=== PATIENT | female | born 1940 | race Caucasian/White ===

== ENCOUNTER → 2017-07-13 08:14 | Outpatient (CLI) | payer MEDICARE, SELFPAY ==
--- NOTE | 2017-07-13 08:18 | BI_ITS ---
MAMMOGRAPHY - BILATERAL SCREENING REASON FOR EXAM: Female, 77 years old. Routine annual screening examination. PERTINENT HISTORY: Sisters with breast cancer. TECHNIQUE: Digital bilateral breast saniya (3D mammographic acquisition) in the CC and MLO projections. 2-D mediolateral oblique (MLO) and craniocaudad (CC) views of both breasts were obtained. CAD: Full Field Digital Mammography with Computer Added Detection was performed. COMPARISON: Comparison is made with prior study dated July 12, 2016 and June 19, 2015. FINDINGS: Breast Composition: The breasts are heterogeneously dense, which may obscure small masses. There are no dominant masses or suspicious calcifications. Stable calcified nodular density in the deep mid inner portion of the left breast in keeping with calcified fibroadenoma. No other significant abnormalities are identified. There has been no significant change since the prior study. BI/SCREENING MAMM (CAD), BILAT IMPRESSION: Stable bilateral screening mammogram. Yearly follow-up mammogram recommended. (A) ASSESSMENT CATEGORY: BIRADS Category 2: Benign. A letter regarding these results will be sent to the patient by the facility within 30 days. Approximately 10% of breast cancers are not detected by mammography. A normal mammogram should not delay biopsy of a clinically suspicious abnormality. [id number] Electronically Signed: Tone Mary MD at 10:08 EDT Tel [phone], Service support ,
--- NOTE | 2017-07-13 08:20 | BD_ITS ---
STUDY: DUAL ENERGY X-RAY ABSORPTIOMETRY / DXA REASON FOR EXAM: Female, 77 years old. The patient is postmenopausal. Loss of height of 1.5 inches. TECHNIQUE: Bone Mineral Density (BMD) measurements of lumbar spine and bilateral hips were obtained. COMPARISON: Comparison is made with prior study dated June 08, 2011. FINDINGS: Lumbar Spine (L1-L4): g/cm2 (1.012) / T-score (-1.4) / Z-score (0.4) Findings are suggestive of osteopenia with a moderate fracture risk. Left Femur Total: g/cm2 (0.891) / T-score (-0.9) / Z-score (1.0) Left Femoral Neck: g/cm2 (0.769) / T-score (-1.9) / Z-score (0.1) Right Femur Total: g/cm2 (0.809) / T-score (-1.6) / Z-score (0.3) Right Femoral Neck: g/cm2 (0.715) / T-score (-2.3) / Z-score (-0.3) The T-Scores on the most recent prior examination were: Lumbar Spine (L1-L4): There has been improvement of bone density since the previous examination. Left Femur Total: which represents a worsening of 9.9%. Right Femur Total: which represents a worsening of 11.4%. BD/Dexa Bone Density Study IMPRESSION: The patient is considered osteopenic as outlined below according to World [place] Organization (WHO) criteria with a moderate fracture risk. There has been worsening of bone density since the previous examination. Reference Information: The T-score is the number of standard deviations above or below the standard which is normal for young adults at their peak bone mineral density. The World Health Organization (WHO) interprets the T-scores as follows: Above -1 Normal bone density Between -1 and -2.5 Osteopenia Equal to / or below -2.5 Osteoporosis As a practical clinical guideline, osteopenia may be graded as follows: Mild -1 through -1.5 Moderate -1.6 through -2.0 Severe -2.1 through -2.4 The Z-score is the number of standard deviations above or below age-matched controls. A Z-score of less than -1.5 would be considered abnormal. References: 1. NIH Osteoporosis and Related Bone Diseases http://www.osteo.org 2. International Society for Clinical Densitometry http://www.iscd.org 3. National Osteoporosis Foundation http://www.nof.org Electronically Signed: Tone Mary MD at 11:20 EDT Tel [phone], Service support ,
== END ==
PROVIDERS: Family Provider Internal Medicine; PCP Internal Medicine; Visit Provider Internal Medicine
DX: Z12.31 Encounter for screening mammogram for malignant neoplasm of breast (principal); Z78.0 Asymptomatic menopausal state
CPT/HCPCS: 77063; 77067; 77080

== ENCOUNTER → 2018-01-31 06:03 | Outpatient (CLI) | payer MEDICARE, SELFPAY ==
[2018-01-31 06:11] LABS: Bacteria 0 SEEN /hpf (None Seen); Mucous, Urine 0 SEEN /hpf (<or=2+); Red Blood Cells-Urine 0 SEEN /hpf (0-5)
[2018-01-31 06:55] LABS: Absolute Lymphocyte Count 1.52 X10^3/ul (0.83-4.51); Absolute Neutrophil Count 2.8 X10^3/uL (2.0-7.7); Basophil# 0.06 X10^3/uL; Basophil% 1.2 % (0-1); Eosinophil# 0.23 X10^3/uL; Eosinophils% 4.7 % (0-5); Hematocrit 37.2 % (37-47); Hemoglobin 12.3 g/dl (12.0-15.0); Lymphocyte # 1.52 X10^3/ul (4.0); Mean Corp Hgb Conc 33.1 g/gl (32-36); Mean Corpuscular Hgb 30.1 pg (27.0-32.0); Mean Platelet Vol. 10.3 fl (6.2-12.0); Monocyte# 0.29 X10^3/uL; Monocyte% 5.9 % (0-10); Neutrophil % 57.2 % (47-70); Platelet Count 242 K/mm3 (150-450); RBC Distribution Width CV 13.2 % (11.6-14.6); RBC Distribution Width SD 43.8 fl (35.1-43.9); Red Blood Count 4.09 M/mm3 (4.2-5.4); White Blood Count 4.9 K/mm3 (4.4-11.0)
[2018-01-31 06:58] LABS: Color, Urine Yellow (Yellow); Glucose, Dipstick Normal (Normal); Ketone-Dipstick Negative (Negative); Leukocyte Esterase-Dipstick 500 /ul (Negative); Nitrite-Dipstick Negative (Negative); Occult Blood-Urine Negative /ul (Negative); Protein-Dipstick Negative (Negative); Urine Bilirubin Dipstick Negative (Negative); Urine Clarity Clear (Clear); Urine Urobilinogen Normal (Normal)
[2018-01-31 07:02] LABS: POSITIVE COUNT NO; POSITIVE DIFFERENTIAL NO; POSITIVE MORPHOLOGY NO
[2018-01-31 07:12] LABS: Squamous Epithelial Cells - UA 0-5 SEEN /hpf (5-10); White Blood Cells 5-10 SEEN /hpf (0-5)
[2018-01-31 07:15] LABS: Microalbumin,Random Urine 15.5 mg/L (NO RANGE EST.); Microalbumin:Creatinine Ratio 8.2 mg/g CRE (<30 mg/g CRE)
[2018-01-31 07:33] LABS: ALB/GLOB Ratio 1.1 RATIO (0.9-2.4); AST(SGOT) 20 U/L (15-37); Alanine Aminotransfer ALT/SGPT 23 U/L (13-56); Albumin, Serum 3.7 g/dL (3.2-5.0); Alkaline Phosphatase 79 U/L (45-117); Anion Gap 7 (5-15); BUN 18 mg/dL (7-18); BUN/Creat Ratio 14.6 RATIO (10-20); Calcium,Total 8.6 mg/dL (8.5-10.1); Chloride 108 mmol/L (98-107); Cholesterol 191 mg/dL (200); Creatinine, Serum 1.23 mg/dL (0.55-1.02); EST Glomerular Filtration Rate 45 mL/min (>60); Est Glom Filt Rate - Afr Amer 54 mL/min (>60); Globulin 3.5 g/dL (2.2-4.2); Glucose 92 mg/dL (74-106); High Density Lipoprotein 58 mg/dL; Potassium 4.2 mmol/L (3.5-5.1); Protein, Total 7.2 g/dL (6.4-8.2); Sodium Level 141 mmol/L (136-145); Thyroid Stim Hormone (TSH) 2.54 uIU/mL (0.358-3.74); Triglycerides 92 mg/dL; Very Low Density Lipoprotein 18 mg/dL (5-40)
[2018-01-31 08:41] LABS: Vitamin D,25 Hydroxy 52.3 ng/mL (29.95-100.01)
== END ==
PROVIDERS: Family Provider Internal Medicine; PCP Internal Medicine; Referring Provider Internal Medicine; Visit Provider Internal Medicine
DX: E55.9 Vitamin D deficiency, unspecified (principal); I11.9 Hypertensive heart disease without heart failure; R73.02 Impaired glucose tolerance (oral)
CPT/HCPCS: 36415; 80053; 80061; 81001; 82043; 82306; 82570; 84443; 85025

== ENCOUNTER → 2018-04-19 11:10 | Outpatient (CLI) | payer MEDICARE, SELFPAY ==
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
== END ==
PROVIDERS: Family Provider Internal Medicine; PCP Internal Medicine; Referring Provider Internal Medicine; Visit Provider Internal Medicine
DX: M25.562 Pain in left knee (principal)
CPT/HCPCS: 73560

== ENCOUNTER 2018-05-19 07:30 | Outpatient (RCR) | payer MEDICARE, SELFPAY ==
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
--- NOTE | 2018-05-19 08:05 | HP.PTDCSUM ---
HP - PT D/C Summary It has been my pleasure to treat ANDREEA CORDOVA under orders from Nayely Caldwell, for the diagnosis of Left knee Pain for a total of 8 visit(s). Discharge Date: Please see the following information for a summary of their discharge status. - Subjective Subjective: Sometimes she thinks she is alright but the medial side feels swollen and painful. Its slowing her down- better than she was but not 100%. Thinks there is more than OA going on in there. Goes back to the MD the - Pain at night and twisting. - Overall Improvement % Improvement: 80 - Objective Objective/Function: Posture: FH, RS, Increased. Gait: no deviation. Stairs: asc/desc 8 stairs recip with 1 HR HR/TR: able with UE A. SLS: 10 sec without LOB. Palpation: tender along medial joint line. ROM: 0-120 degrees. Strength: Ankle: 5/5, Knee: 4+/5, Hip: 4+/5 throughout Core: fair minus. Flex: HS: moderate, Gastroc: moderate. Special Test: Gena: positive - Goals Goal 1:: Patient will be I with HEP and progression Goal 2:: Patient will ambulate >300 feet with a normalized gait pattern Goal 3:: Patient will asc/desc 8 stairs recip with 1 HR Goal 4:: Patient will report 0/10 pain for 1 week Goal 5:: Patient will demo 4+/5 strenght in LE where deficit - Plan Plan: Discharge to I HEP - D/C Information If there are questions or concerns regarding this patient's physical therapy, please feel free to call me at [phone]. Thank you for the referral of this patient. Sincerely, Inge Anderson DPT
== END 2018-05-19 10:10 | disposition home or self-care (01) ==
LOC: PT 07:30
PROVIDERS: Family Provider Internal Medicine; PCP Internal Medicine; Referring Provider Physician Assistant; Visit Provider Physician Assistant
DX: M17.12 Unilateral primary osteoarthritis, left knee (principal)
CPT/HCPCS: 97035; 97110; 97161; 97164

== ENCOUNTER 2018-06-09 07:30 | Outpatient (RCR) | payer MEDICARE, SELFPAY ==
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
--- NOTE | 2018-08-09 12:18 | HP.PT.NRP ---
HP - Discharge Summary (1) - Patient Information ANDREEA CORDOVA was seen in my office for initial evaluation on 06/07/18. The following Plan of Care was established for this patient: Initial Frequency: 1x/Week Initial Duration: 1 Week - Anticipated Interventions Patient/Client Instruction: Educate patient on: Condition, Plan of Care For the Purpose of:: To improve self management Therapeutic Exercise to Include: Strength training, Endurance training, Active ROM, Dynamic Lumbar Stabilization For the Purpose of:: To decrease pain This patient was last seen in our office . Pertinent comments regarding their Physical therapy will appear below: Pt was treated for one follow up PT visit for her L knee pain on the date of 06/09/18. Pt was issued and instructed on a HEP which demonstrated to be I with at that time. Pt has not returned through todays date, and is therefore discharged at this time. At this point I will be discontinuing this patient from physical therapy. I would be happy to see this patient again in the future if found appropriate by the physician. Thank you! Nabor Che, PT, ATC
== END 2018-06-09 19:00 | disposition home or self-care (01) ==
LOC: PT 07:30
PROVIDERS: Family Provider Internal Medicine; PCP Internal Medicine; Referring Provider Physician Assistant; Visit Provider Physician Assistant
DX: S83.412D Sprain of medial collateral ligament of left knee, subsequent encounter (principal)
CPT/HCPCS: 97110; 97161

== ENCOUNTER → 2018-07-14 07:00 | Outpatient (CLI) | payer MEDICARE, SELFPAY ==
--- NOTE | 2018-07-14 06:58 | BI_ITS ---
MAMMOGRAPHY - BILATERAL SCREENING REASON FOR EXAM: Female, 78 years old. Routine annual screening examination. PERTINENT HISTORY: Sisters with breast cancer. TECHNIQUE: Digital bilateral breast saniya (3D mammographic acquisition) in the CC and MLO projections. 2-D mediolateral oblique (MLO) and craniocaudad (CC) views of both breasts were obtained. CAD: Full Field Digital Mammography with Computer Added Detection was performed. COMPARISON: Comparison is made with prior examination dated July 13, 2017 and July 12, 2016. FINDINGS: Breast Composition: The breasts are heterogeneously dense, which may obscure small masses. There are no dominant masses or suspicious calcifications. Stable calcified nodular density in the deep mid inner aspect of the left breast suggestive of a calcified fibroadenoma. Stable right axillary lymph node. No other significant abnormalities are identified. There has been no significant change since the prior study. BI/SCREENING MAMM (CAD), BILAT IMPRESSION: Stable bilateral screening mammogram. Yearly follow-up mammogram recommended. (A) ASSESSMENT CATEGORY: BIRADS Category 2: Benign. A letter regarding these results will be sent to the patient by the facility within 30 days. Approximately 10% of breast cancers are not detected by mammography. A normal mammogram should not delay biopsy of a clinically suspicious abnormality. [id number] Electronically Signed: Tone Mary, at 8:29 EDT , Service support ,
== END ==
PROVIDERS: Family Provider Internal Medicine; PCP Internal Medicine; Referring Provider Internal Medicine; Visit Provider Internal Medicine
DX: Z12.31 Encounter for screening mammogram for malignant neoplasm of breast (principal)
CPT/HCPCS: 77063; 77067

== ENCOUNTER → 2018-11-20 06:53 | Outpatient (CLI) | payer MEDICARE, SELFPAY ==
[2018-11-20 07:06] LABS: Bacteria 0 SEEN /hpf (None Seen); Mucous, Urine 0 SEEN /hpf (<or=2+); Red Blood Cells-Urine 0 SEEN /hpf (0-5)
[2018-11-20 07:22] LABS: Absolute Lymphocyte Count 1.78 X10^3/uL (0.83-4.51); Absolute Neutrophil Count 2.2 X10^3/uL (2.0-7.7); Basophil# 0.05 X10^3/uL; Basophil% 1.1 % (0-1); Eosinophil# 0.25 X10^3/uL; Eosinophils% 5.3 % (0-5); Hematocrit 39.2 % (37-47); Hemoglobin 12.7 g/dL (12.0-15.0); Lymphocyte # 1.78 X10^3/ul (4.0); Mean Corp Hgb Conc 32.4 g/dL (32-36); Mean Corpuscular Hgb 29.6 pg (27.0-32.0); Mean Corpuscular Volume 91.4 fL (81-99); Mean Platelet Vol. 9.9 fl (6.2-12.0); Monocyte# 0.37 X10^3/uL; Monocyte% 7.9 % (0-10); NRBC Flagged by Analyzer 0 % (0-5); Neutrophil # 2.21 X10^3/uL (2.7-7.7); Neutrophil % 47.3 % (47-70); Platelet Count 230 K/mm3 (150-450); RBC Distribution Width CV 12.9 % (11.6-14.6); RBC Distribution Width SD 43.5 fl (35.1-43.9); Red Blood Count 4.29 M/mm3 (4.2-5.4); White Blood Count 4.7 K/mm3 (4.4-11.0)
[2018-11-20 07:45] LABS: Color, Urine Yellow (Yellow); Glucose, Dipstick Normal (Normal); Ketone-Dipstick Negative (Negative); Leukocyte Esterase-Dipstick 25 /ul (Negative); Nitrite-Dipstick Negative (Negative); Occult Blood-Urine Negative /ul (Negative); Protein-Dipstick Negative (Negative); Specific Gravity, Urine 1.015 (1.002-1.030); Urine Bilirubin Dipstick Negative (Negative); Urine Clarity Sl. Cloudy (Clear); Urine Urobilinogen Normal (Normal)
[2018-11-20 07:50] LABS: Microalbumin,Random Urine < 5.0 mg/L (NO RANGE EST.)
[2018-11-20 07:52] LABS: Squamous Epithelial Cells - UA 0-5 SEEN /hpf (5-10); White Blood Cells 0-5 SEEN /hpf (0-5)
[2018-11-20 07:54] LABS: ALB/GLOB Ratio 1.1 RATIO (0.9-2.4); AST(SGOT) 20 U/L (15-37); Alanine Aminotransfer ALT/SGPT 24 U/L (13-56); Albumin, Serum 3.9 g/dL (3.2-5.0); Alkaline Phosphatase 70 U/L (45-117); Anion Gap 4 (5-15); BUN 18 mg/dL (7-18); BUN/Creat Ratio 14.1 RATIO (10-20); Calcium,Total 8.9 mg/dL (8.5-10.1); Chloride 108 mmol/L (98-107); Cholesterol 213 mg/dL (200); Creatinine, Serum 1.28 mg/dL (0.55-1.02); EST Glomerular Filtration Rate 43 mL/min (>60); Est Glom Filt Rate - Afr Amer 52 mL/min (>60); Globulin 3.5 g/dL (2.2-4.2); Glucose 93 mg/dL (74-106); High Density Lipoprotein 72 mg/dL; Potassium 4.2 mmol/L (3.5-5.1); Protein, Total 7.4 g/dL (6.4-8.2); Sodium Level 140 mmol/L (136-145); Thyroid Stim Hormone (TSH) 2.11 uIU/mL (0.358-3.74); Triglycerides 98 mg/dL; Very Low Density Lipoprotein 20 mg/dL (5-40)
== END ==
PROVIDERS: Family Provider Internal Medicine; PCP Internal Medicine; Referring Provider Internal Medicine; Visit Provider Internal Medicine
DX: E55.9 Vitamin D deficiency, unspecified (principal); R73.02 Impaired glucose tolerance (oral)
CPT/HCPCS: 36415; 80053; 80061; 81001; 82043; 82306; 82570; 84443; 85025

== ENCOUNTER → 2019-06-07 08:25 | Outpatient (CLI) | payer MEDICARE, SELFPAY ==
[2019-06-07 08:32] LABS: Bacteria 0 SEEN /hpf (None Seen); Mucous, Urine 0 SEEN /hpf (<or=2+); Red Blood Cells-Urine 0 SEEN /hpf (0-5); White Blood Cells 0 SEEN /hpf (0-5)
[2019-06-07 09:13] LABS: Absolute Lymphocyte Count 1.35 X10^3/uL (0.83-4.51); Absolute Neutrophil Count 2.6 X10^3/uL (2.0-7.7); Basophil# 0.07 X10^3/uL; Basophil% 1.5 % (0-1); Eosinophil# 0.24 X10^3/uL; Eosinophils% 5.2 % (0-5); Hematocrit 38.8 % (37-47); Hemoglobin 12.6 g/dL (12.0-15.0); Lymphocyte # 1.35 X10^3/ul (4.0); Lymphocyte % 29.2 % (19-41); Mean Corp Hgb Conc 32.5 g/dL (32-36); Mean Corpuscular Hgb 28.4 pg (27.0-32.0); Mean Corpuscular Volume 87.6 fL (81-99); Monocyte# 0.36 X10^3/uL; Monocyte% 7.8 % (0-10); NRBC Flagged by Analyzer 0 % (0-5); Neutrophil # 2.59 X10^3/uL (2.7-7.7); Neutrophil % 56.1 % (47-70); Platelet Count 260 K/mm3 (150-450); RBC Distribution Width CV 13.1 % (11.6-14.6); RBC Distribution Width SD 42.1 fl (35.1-43.9); Red Blood Count 4.43 M/mm3 (4.2-5.4); White Blood Count 4.6 K/mm3 (4.4-11.0)
[2019-06-07 09:34] LABS: Color, Urine Yellow (Yellow); Glucose, Dipstick Normal (Normal); Ketone-Dipstick Negative (Negative); Leukocyte Esterase-Dipstick Negative /ul (Negative); Nitrite-Dipstick Negative (Negative); Occult Blood-Urine Negative /ul (Negative); Protein-Dipstick Negative (Negative); Specific Gravity, Urine 1.005 (1.002-1.030); Urine Bilirubin Dipstick Negative (Negative); Urine Clarity Clear (Clear); Urine Urobilinogen Normal (Normal)
[2019-06-07 09:38] LABS: Vitamin D,25 Hydroxy 69.2 ng/mL
[2019-06-07 09:46] LABS: ALB/GLOB Ratio 1.1 RATIO (0.9-2.4); AST(SGOT) 18 U/L (15-37); Alanine Aminotransfer ALT/SGPT 23 U/L (13-56); Albumin, Serum 4.1 g/dL (3.2-5.0); Alkaline Phosphatase 70 U/L (45-117); Anion Gap 6 (5-15); BUN 17 mg/dL (7-18); BUN/Creat Ratio 12.4 RATIO (10-20); Chloride 105 mmol/L (98-107); Cholesterol 218 mg/dL (200); Creatinine, Serum 1.37 mg/dL (0.55-1.02); EST Glomerular Filtration Rate 39 mL/min (>60); Est Glom Filt Rate - Afr Amer 48 mL/min (>60); Globulin 3.6 g/dL (2.2-4.2); Glucose 90 mg/dL (74-106); High Density Lipoprotein 71 mg/dL; Microalbumin,Random Urine < 5.0 mg/L (NO RANGE EST.); Potassium 4.6 mmol/L (3.5-5.1); Protein, Total 7.7 g/dL (6.4-8.2); Sodium Level 137 mmol/L (136-145); Thyroid Stim Hormone (TSH) 2.09 uIU/mL (0.358-3.74); Triglycerides 69 mg/dL; Very Low Density Lipoprotein 14 mg/dL (5-40)
[2019-06-07 09:54] LABS: Squamous Epithelial Cells - UA 0-5 SEEN /hpf (5-10)
== END ==
PROVIDERS: PCP Internal Medicine; Referring Provider Internal Medicine; Visit Provider Internal Medicine
DX: E78.00 Pure hypercholesterolemia, unspecified (principal); I11.9 Hypertensive heart disease without heart failure; E55.9 Vitamin D deficiency, unspecified
CPT/HCPCS: 36415; 80053; 80061; 81001; 82043; 82306; 82570; 84443; 85025

== ENCOUNTER → 2019-10-10 07:00 | Outpatient (CLI) | payer MEDICARE, SELFPAY ==
--- NOTE | 2019-10-10 07:08 | BI_ITS ---
MAMMOGRAPHY - BILATERAL SCREENING REASON FOR EXAM: Female, 79 years old. Routine annual screening examination. PERTINENT HISTORY: Sisters with breast cancer. TECHNIQUE: Digital bilateral breast anitra (3D mammographic acquisition) in the CC and MLO projections. 2-D mediolateral oblique (MLO) and craniocaudad (CC) views of both breasts were obtained. CAD: Full Field Digital Mammography with Computer Added Detection was performed. COMPARISON: Comparison is made with prior study dated July 14, 2018 and July 13, 2017. FINDINGS: Breast Composition: The breasts are heterogeneously dense, which may obscure small masses. There are no dominant masses or suspicious calcifications. Stable calcified 4.2 mm nodule in the deep central medial portion of the left breast. Stable benign-appearing bilateral axillary No other significant abnormalities are identified. There has been no significant change since the prior study. BI/SCREEN MAMM (CAD) W/ANITRA BILAT IMPRESSION: Stable bilateral screening mammogram. Yearly follow-up mammogram recommended. (A) ASSESSMENT CATEGORY: BIRADS Category 2: Benign. A letter regarding these results will be sent to the patient by the facility within 30 days. Approximately 10% of breast cancers are not detected by mammography. A normal mammogram should not delay biopsy of a clinically suspicious abnormality. [id number] Electronically Signed: Tone Mary, at 8:28 EDT , Service support ,
== END ==
PROVIDERS: PCP Internal Medicine; Referring Provider Internal Medicine; Visit Provider Internal Medicine
DX: Z12.31 Encounter for screening mammogram for malignant neoplasm of breast (principal); Z80.3 Family history of malignant neoplasm of breast
CPT/HCPCS: 77063; 77067

== ENCOUNTER → 2020-05-07 06:18 | Outpatient (CLI) | payer MEDICARE, SELFPAY ==
[2020-05-07 07:48] LABS: Absolute Neutrophil Count 2.5 X10^3/uL (2.0-7.7); Basophil# 0.04 X10^3/uL; Basophil% 0.9 % (0-1); Eosinophil# 0.15 X10^3/uL; Eosinophils% 3.3 % (0-5); Hematocrit 38.1 % (37-47); Hemoglobin 12.3 g/dL (12.0-15.0); Lymphocyte % 33.4 % (19-41); Mean Corp Hgb Conc 32.3 g/dL (32-36); Mean Corpuscular Hgb 29.2 pg (27.0-32.0); Mean Corpuscular Volume 90.5 fL (81-99); Mean Platelet Vol. 10.7 fl (6.2-12.0); Monocyte# 0.34 X10^3/uL; Monocyte% 7.6 % (0-10); NRBC Flagged by Analyzer 0 % (0-5); Neutrophil # 2.45 X10^3/uL (2.7-7.7); Neutrophil % 54.6 % (47-70); Platelet Count 223 K/mm3 (150-450); RBC Distribution Width CV 12.8 % (11.6-14.6); RBC Distribution Width SD 42.4 fl (35.1-43.9); Red Blood Count 4.21 M/mm3 (4.2-5.4); White Blood Count 4.5 K/mm3 (4.4-11.0)
[2020-05-07 08:27] LABS: ALB/GLOB Ratio 1.2 RATIO (0.9-2.4); AST(SGOT) 16 U/L (15-37); Alanine Aminotransfer ALT/SGPT 23 U/L (13-56); Albumin, Serum 3.8 g/dL (3.2-5.0); Alkaline Phosphatase 68 U/L (45-117); Anion Gap 7 (5-15); BUN 11 mg/dL (7-18); BUN/Creat Ratio 8.9 RATIO (10-20); Calcium,Total 8.9 mg/dL (8.5-10.1); Chloride 106 mmol/L (98-107); Cholesterol 191 mg/dL (200); Creatinine, Serum 1.24 mg/dL (0.55-1.02); EST Glomerular Filtration Rate 44 mL/min (>60); Est Glom Filt Rate - Afr Amer 53 mL/min (>60); Globulin 3.3 g/dL (2.2-4.2); Glucose 112 mg/dL (74-106); High Density Lipoprotein 67 mg/dL; Microalbumin,Random Urine < 5.0 mg/L (NO RANGE EST.); Potassium 3.7 mmol/L (3.5-5.1); Protein, Total 7.1 g/dL (6.4-8.2); Sodium Level 139 mmol/L (136-145); Thyroid Stim Hormone (TSH) 2.89 uIU/mL (0.358-3.74); Triglycerides 56 mg/dL; Very Low Density Lipoprotein 11 mg/dL (5-40)
[2020-05-07 08:40] LABS: Vitamin D,25 Hydroxy 45.8 ng/mL
== END ==
PROVIDERS: PCP Internal Medicine; Referring Provider Internal Medicine; Visit Provider Internal Medicine
DX: E55.9 Vitamin D deficiency, unspecified (principal); E78.00 Pure hypercholesterolemia, unspecified; I11.9 Hypertensive heart disease without heart failure
CPT/HCPCS: 36415; 80053; 80061; 82043; 82306; 82570; 84443; 85025

== ENCOUNTER → 2020-10-22 06:59 | Outpatient (CLI) | payer MEDICARE, SELFPAY ==
--- NOTE | 2020-10-22 07:01 | BI_ITS ---
MAMMOGRAPHY - BILATERAL SCREENING REASON FOR EXAM: Female, 80 years old. Routine annual screening examination. PERTINENT HISTORY: Sisters with breast cancer. TECHNIQUE: Digital bilateral breast anitra (3D mammographic acquisition) in the CC and MLO projections. 2-D mediolateral oblique (MLO) and craniocaudad (CC) views of both breasts were obtained. CAD: Full Field Digital Mammography with Computer Added Detection was performed. COMPARISON: Comparison is made with prior study dated 10/10/2019 and 07/14/2018. FINDINGS: Breast Composition: The breasts are heterogeneously dense, which may obscure small masses. There are no dominant masses or suspicious calcifications. Stable small benign-appearing bilateral axillary lymph nodes. Stable 4.2 mm calcified nodule in the deep central medial portion of the left breast. No other significant abnormalities are identified. There has been no significant change since the prior study. BI/SCRN MAMM (CAD)W/ANITRA BILAT IMPRESSION: Stable bilateral screening mammogram. Yearly follow-up mammogram recommended. (A) ASSESSMENT CATEGORY: BIRADS Category 2: Benign. A letter regarding these results will be sent to the patient by the facility within 30 days. Approximately 10% of breast cancers are not detected by mammography. A normal mammogram should not delay biopsy of a clinically suspicious abnormality. [id number] Electronically Signed: Tone Mary MD at 8:40 EDT , Service support ,
== END ==
PROVIDERS: PCP Internal Medicine; Referring Provider Internal Medicine; Visit Provider Internal Medicine
DX: Z12.31 Encounter for screening mammogram for malignant neoplasm of breast (principal)
CPT/HCPCS: 77063; 77067

== ENCOUNTER → 2021-02-17 09:51 | Outpatient (CLI) | payer MEDICARE, SELFPAY ==
--- NOTE | 2021-02-17 09:56 | CT_ITS ---
INDICATION: Left OTALGIA. Patient hears noise in the left ear. EXAMINATION: CT IAC TEMPORAL BONES - CT IACs W/O Contrast Injection TECHNIQUE:Routine noncontrast CT protocol was performed of the internal auditory canals and temporal bones. 2-D reformats were performed by the technologist. A radiation dose optimization technique was used for this scan. IV Contrast dosage and agent: None. COMPARISON: None. FINDINGS: RIGHT SIDE: No fracture. SUPERFICIAL SOFT TISSUES: Unremarkable. MASTOID AIR CELLS: Partial opacification of the posterior inferior aspect of the mastoid air cells. EXTERNAL AUDITORY CANALS: Clear. MIDDLE EAR CAVITIES: Well aerated. Ossicles and scutum intact. INTERNAL AUDITORY CANALS: Unremarkable bilateral internal auditory canals. No osseous erosion or widening of the canal. INNER EAR: Unremarkable cochlea, vestibule and semicircular canals. LEFT SIDE: No fracture. SUPERFICIAL SOFT TISSUES: Unremarkable. MASTOID AIR CELLS: Well aerated, unremarkable. EXTERNAL AUDITORY CANALS: Clear. MIDDLE EAR CAVITIES: Well aerated. Ossicles and scutum intact. INTERNAL AUDITORY CANALS: Unremarkable bilateral internal auditory canals. No osseous erosion or widening of the canal. INNER EAR: Unremarkable cochlea, vestibule and semicircular canals. VISUALIZED BRAIN AND POSTERIOR FOSSA: Cerebello-pontine angles are unremarkable. CT/Orb Sella Post Fossa Ear w/o IMPRESSION: Partial opacification of the right mastoid air cells. Electronically Signed: Tone Mary MD at 13:23 EST , Service support ,
== END ==
PROVIDERS: PCP Internal Medicine; Referring Provider Otolaryngology; Visit Provider Otolaryngology
DX: H92.02 Otalgia, left ear (principal)
CPT/HCPCS: 70480

== ENCOUNTER → 2021-03-09 12:06 | Outpatient (CLI) | payer MEDICARE, SELFPAY ==
--- NOTE | 2021-03-09 12:09 | RAD_ITS ---
STUDY: X-RAY - CERVICAL SPINE REASON FOR EXAM: Female, 80 years old. Neck pain. TECHNIQUE: 4 view(s) of the cervical spine were obtained. COMPARISON: CT of the cervical spine dated 01/25/2016. FINDINGS: Osteopenia. Normal anterior atlantoaxial articulation. Normal odontoid process. Normal cervical lordosis. Diffuse moderate uncovertebral and facet sclerosis. Intervertebral disc space narrowing diffusely most marked at the C4-5, C5-6 and C6-7 interspaces with osteophyte formation most marked at C5-6. Bilateral carotid calcification. RAD/Cerv Spine 2 or 3 Views IMPRESSION: Osteopenia with diffuse moderate cervical spondylosis similar to what was present on the prior CT. No acute abnormality or evidence of erosive changes or fusion. Electronically Signed: Meliton Jimenez MD at 12:47 EST , Service support ,
== END ==
PROVIDERS: PCP Internal Medicine; Referring Provider Anesthesiology Pain Medicine; Visit Provider Anesthesiology Pain Medicine
DX: M54.2 Cervicalgia (principal)
CPT/HCPCS: 72040

== ENCOUNTER → 2021-03-30 06:56 | Outpatient (CLI) | payer MEDICARE, SELFPAY ==
[2021-03-30 07:40] LABS: Absolute Lymphocyte Count 1.87 X10^3/uL (0.83-4.51); Absolute Neutrophil Count 3.7 X10^3/uL (2.0-7.7); Basophil# 0.05 X10^3/uL; Basophil% 0.8 % (0-1); Eosinophil# 0.13 X10^3/uL; Eosinophils% 2.1 % (0-5); Hematocrit 36.8 % (37-47); Hemoglobin 12.2 g/dL (12.0-15.0); Lymphocyte # 1.87 X10^3/ul (0.83-4.51); Lymphocyte % 30.4 % (19-41); Mean Corp Hgb Conc 33.2 g/dL (32-36); Mean Corpuscular Hgb 29.8 pg (27.0-32.0); Mean Platelet Vol. 10.1 fl (6.2-12.0); Monocyte# 0.41 X10^3/uL; Monocyte% 6.7 % (0-10); NRBC Flagged by Analyzer 0 % (0-5); Neutrophil # 3.67 X10^3/uL (2.7-7.7); Neutrophil % 59.7 % (47-70); Platelet Count 230 K/mm3 (150-450); RBC Distribution Width CV 12.9 % (11.6-14.6); RBC Distribution Width SD 42.5 fl (35.1-43.9); Red Blood Count 4.09 M/mm3 (4.2-5.4); White Blood Count 6.2 K/mm3 (4.4-11.0)
[2021-03-30 08:17] LABS: ALB/GLOB Ratio 1.2 RATIO (0.9-2.4); AST(SGOT) 16 U/L (15-37); Alanine Aminotransfer ALT/SGPT 22 U/L (13-56); Albumin, Serum 3.8 g/dL (3.2-5.0); Alkaline Phosphatase 64 U/L (45-117); Anion Gap 6 (5-15); BUN 21 mg/dL (7-18); BUN/Creat Ratio 16.4 RATIO (10-20); Calcium,Total 9.2 mg/dL (8.5-10.1); Chloride 109 mmol/L (98-107); Cholesterol 194 mg/dL (200); Creatinine, Serum 1.28 mg/dL (0.55-1.02); EST Glomerular Filtration Rate 42 mL/min (>60); Est Glom Filt Rate - Afr Amer 51 mL/min (>60); Globulin 3.3 g/dL (2.2-4.2); Glucose 93 mg/dL (74-106); High Density Lipoprotein 76 mg/dL; Potassium 4.1 mmol/L (3.5-5.1); Protein, Total 7.1 g/dL (6.4-8.2); Sodium Level 141 mmol/L (136-145); Thyroid Stim Hormone (TSH) 2.18 uIU/mL (0.358-3.74); Triglycerides 57 mg/dL; Very Low Density Lipoprotein 11 mg/dL (5-40)
[2021-03-30 09:00] LABS: Microalbumin,Random Urine 15.4 mg/L (NO RANGE EST.); Microalbumin:Creatinine Ratio 6.9 mg/g CRE (<30 mg/g CRE)
[2021-03-30 09:03] LABS: Hemoglobin A1c 5.4 % (3.8-5.6)
== END ==
PROVIDERS: PCP Internal Medicine; Referring Provider Internal Medicine; Visit Provider Internal Medicine
DX: I11.9 Hypertensive heart disease without heart failure (principal); R73.09 Other abnormal glucose; E78.00 Pure hypercholesterolemia, unspecified; E55.9 Vitamin D deficiency, unspecified
CPT/HCPCS: 36415; 80053; 80061; 82043; 82306; 82570; 83036; 84443; 85025

== ENCOUNTER → 2021-10-01 | Outpatient (CLI) | payer MEDICARE, SELFPAY ==
[2021-10-01 08:09] LABS: Hematocrit 38.2 % (37-47); Hemoglobin 12.1 g/dL (12.0-15.0); Mean Corp Hgb Conc 31.7 g/dL (32-36); Mean Corpuscular Volume 94.6 fL (81-99); Mean Platelet Vol. 10.3 fl (6.2-12.0); Platelet Count 247 K/mm3 (150-450); RBC Distribution Width CV 12.7 % (11.6-14.6); RBC Distribution Width SD 44.5 fl (35.1-43.9); Red Blood Count 4.04 M/mm3 (4.2-5.4); White Blood Count 4.8 K/mm3 (4.4-11.0)
[2021-10-01 08:33] LABS: Vitamin B12 900 pg/mL (211-911)
[2021-10-01 08:57] LABS: ALB/GLOB Ratio 1.2 RATIO (0.9-2.4); AST(SGOT) 19 U/L (15-37); Alanine Aminotransfer ALT/SGPT 26 U/L (13-56); Albumin, Serum 3.8 g/dL (3.2-5.0); Alkaline Phosphatase 64 U/L (45-117); Anion Gap 3 (5-15); BUN 17 mg/dL (7-18); BUN/Creat Ratio 12.5 RATIO (10-20); Calcium,Total 9.2 mg/dL (8.5-10.1); Chloride 109 mmol/L (98-107); Creatinine, Serum 1.36 mg/dL (0.55-1.02); EST Glomerular Filtration Rate 40 mL/min (>60); Est Glom Filt Rate - Afr Amer 48 mL/min (>60); Globulin 3.2 g/dL (2.2-4.2); Glucose 89 mg/dL (74-106); Potassium 4.6 mmol/L (3.5-5.1); Sodium Level 141 mmol/L (136-145)
[2021-10-05 17:19] LABS: Vitamin B1, Thiamine 116.7 nmol/L (66.5-200.0)
== END | disposition home or self-care (01) ==
LOC: LAB 06:59
PROVIDERS: PCP Internal Medicine; Referring Provider Psychiatry & Neurology Neurology; Visit Provider Psychiatry & Neurology Neurology
DX: M54.81 Occipital neuralgia (principal)
CPT/HCPCS: 36415; 80053; 82607; 82746; 84425; 85027

== ENCOUNTER → 2021-10-09 | Outpatient (CLI) | payer MEDICARE, SELFPAY ==
--- NOTE | 2021-10-09 06:23 | MRI_ITS ---
STUDY: MRI BRAIN WITH AND WITHOUT CONTRAST (ATTENTION INTERNAL AUDITORY CANALS - I.A.C.''s) REASON FOR EXAM: Female, 81 years old. Bilateral occipital neuralgia. Left pulsatile tinnitus. TECHNIQUE: Standardized multiplanar fat and water weighted pulse sequences were obtained. 15 mL of IV Dotarem was administered for the contrast portion of the examination. COMPARISON: None. FINDINGS: Normal bilateral temporal bones. Normal bilateral internal auditory canals. There is no demonstrated intracanalicular or cisternal vestibular schwannoma (acoustic neuroma). There is no enhancement of the bilateral VIIth or VIIIth cranial nerves. Normal bilateral cochlea, vestibules and semicircular canals. Normal size of the ventricles and extra-axial spaces for the patient''s age. Normal white matter tracts of the supratentorial brain. Normal bilateral basal ganglia. Normal thalami. Normal flow voids within the major intracranial circulation suggesting patency by spin echo criteria. Normal venous enhancement. There is no enhancing intra-axial or extra-axial abnormality. There is no extra-axial fluid accumulation. Normal sella turcica, pituitary gland, infundibular stalk, optic chiasm and hypothalamus. Normal tectal plate and pineal gland. Normal midbrain, liv and medulla. Normal cerebellum. Normal basal cisterns. No demonstrated orbital abnormality, within the constraints of a routine brain study. Normal visualized paranasal sinuses. Normal calvarium and skull base. Normal visualized soft tissue structures. Normal visualized upper cervical spine. MRI/Brain W/WO Contrast IMPRESSION: Normal unenhanced and enhanced MRI of the bilateral internal auditory canals (I.A.C''s). COMMENT: There are no visible dysplastic arteries or dysplastic veins in or around the left sigmoid sinus to explain left pulsatile tinnitus. Slow flow Dural AV fistula is frequently and easily missed on MRI brain with and without contrast. Since this is left pulsatile tinnitus, the possibility of dural AV fistula cannot be excluded. Cerebral arteriogram with bilateral external carotid arteriogram will be more helpful for further evaluation. Electronically Signed: Tushar Gardner MD at 14:18 EDT ,
== END | disposition home or self-care (01) ==
PROVIDERS: PCP Internal Medicine; Referring Provider Psychiatry & Neurology Neurology; Visit Provider Psychiatry & Neurology Neurology
DX: H93.A2 Pulsatile tinnitus, left ear (principal); M54.81 Occipital neuralgia
CPT/HCPCS: 70553; A9575

== ENCOUNTER → 2021-10-28 | Outpatient (CLI) | payer MEDICARE, SELFPAY ==
--- NOTE | 2021-10-28 09:08 | BI_ITS ---
MAMMOGRAPHY - BILATERAL SCREENING REASON FOR EXAM: Female, 81 years old. Routine annual screening examination. PERTINENT HISTORY: Sisters with breast cancer. TECHNIQUE: Digital bilateral breast anitra (3D mammographic acquisition) in the CC and MLO projections. 2-D mediolateral oblique (MLO) and craniocaudad (CC) views of both breasts were obtained. CAD: Full Field Digital Mammography with Computer Added Detection was performed. COMPARISON: Comparison is made with prior study of 10/22/2020 and 10/10/2019. FINDINGS: Breast Composition: The breasts are extremely dense, which lowers the sensitivity of mammography. There are no dominant masses or suspicious calcifications. Stable benign-appearing small axillary lymph nodes. Stable 4.2 mm calcified nodule in the deep central medial portion of the left breast. No other significant abnormalities are identified. There has been no significant change since the prior study. BI/SCRN MAMM (CAD)W/ANITRA BILAT IMPRESSION: Stable bilateral screening mammogram. Yearly follow-up mammogram recommended. (A) ASSESSMENT CATEGORY: BIRADS Category 2: Benign. A letter regarding these results will be sent to the patient by the facility within 30 days. Approximately 10% of breast cancers are not detected by mammography. A normal mammogram should not delay biopsy of a clinically suspicious abnormality. [id number] Electronically Signed: Tone Mary MD at 10:18 EDT ,
--- NOTE | 2021-10-28 09:42 | BD_ITS ---
STUDY: DUAL ENERGY X-RAY ABSORPTIOMETRY / DXA REASON FOR EXAM: Female, 81 years old. [id number]. The patient is postmenopausal. TECHNIQUE: Bone Mineral Density (BMD) measurements of lumbar spine and bilateral hips were obtained. COMPARISON: Comparison is made with prior study 07/13/2017. FINDINGS: Lumbar Spine (L1-L4): g/cm2 (0.928) / T-score (-1.1) / Z-score (1.7) Findings are suggestive of osteopenia with a low fracture risk. Left Femur Total: g/cm2 (0.839) / T-score (-0.8) / Z-score (1.4) Left Femoral Neck: g/cm2 (0.6 x 7) / T-score (-1.7) / Z-score (0.7) Right Femur Total: g/cm2 (0.761) / T-score (-1.5) / Z-score (0.7) Right Femoral Neck: g/cm2 (0.56 to) / T-score (-2.6) / Z-score (-0.2) The T-Scores on the most recent prior examination were: Lumbar Spine (L1-L4): There has been improvement of bone density since the previous examination. Left Femur Total: which represents an improvement of 1.3%. Right Femur Total: which represents an improvement of 1.7%. BD/Dexa Bone Density Study IMPRESSION: The patient is considered osteoporotic as outlined below according to World [place] Organization (WHO) criteria with a high fracture risk. There has been improvement of bone density since the previous examination. Reference Information: The T-score is the number of standard deviations above or below the standard which is normal for young adults at their peak bone mineral density. The World Health Organization (WHO) interprets the T-scores as follows: Above -1 Normal bone density Between -1 and -2.5 Osteopenia Equal to / or below -2.5 Osteoporosis As a practical clinical guideline, osteopenia may be graded as follows: Mild -1 through -1.5 Moderate -1.6 through -2.0 Severe -2.1 through -2.4 The Z-score is the number of standard deviations above or below age-matched controls. A Z-score of less than -1.5 would be considered abnormal. References: 1. NIH Osteoporosis and Related Bone Diseases www osteo.org 2. International Society for Clinical Densitometry www iscd.org 3. National Osteoporosis Foundation www nof.org Electronically Signed: Tone Mary MD at 14:51 EDT ,
== END | disposition home or self-care (01) ==
LOC: OPBD 09:07
PROVIDERS: PCP Internal Medicine; Referring Provider Internal Medicine; Visit Provider Internal Medicine
DX: Z12.31 Encounter for screening mammogram for malignant neoplasm of breast (principal); Z78.0 Asymptomatic menopausal state; Z80.3 Family history of malignant neoplasm of breast
CPT/HCPCS: 77063; 77067; 77080

== ENCOUNTER → 2021-11-26 | Outpatient (CLI) | payer MEDICARE, SELFPAY ==
[2021-11-26 07:50] LABS: Absolute Lymphocyte Count 1.71 X10^3/uL (0.83-4.51); Absolute Neutrophil Count 2.5 X10^3/uL (2.0-7.7); Basophil# 0.07 X10^3/uL; Basophil% 1.4 % (0-1); Eosinophil# 0.18 X10^3/uL; Eosinophils% 3.7 % (0-5); Erythrocyte Sedimentation Rate 9 mm/hr (0-30); Hematocrit 40.3 % (37-47); Hemoglobin 13.1 g/dL (12.0-15.0); Lymphocyte # 1.71 X10^3/ul (0.83-4.51); Mean Corp Hgb Conc 32.5 g/dL (32-36); Mean Corpuscular Hgb 29.4 pg (27.0-32.0); Mean Corpuscular Volume 90.6 fL (81-99); Mean Platelet Vol. 10.4 fl (6.2-12.0); Monocyte# 0.37 X10^3/uL; Monocyte% 7.6 % (0-10); NRBC Flagged by Analyzer 0 % (0-5); Neutrophil # 2.53 X10^3/uL (2.7-7.7); Neutrophil % 51.9 % (47-70); Platelet Count 230 K/mm3 (150-450); RBC Distribution Width CV 12.8 % (11.6-14.6); RBC Distribution Width SD 42.4 fl (35.1-43.9); Red Blood Count 4.45 M/mm3 (4.2-5.4); White Blood Count 4.9 K/mm3 (4.4-11.0)
[2021-11-26 07:55] LABS: PTHIN 61.2 pg/mL (18.4-80.1)
[2021-11-26 08:19] LABS: AST(SGOT) 24 U/L (15-37); Alanine Aminotransfer ALT/SGPT 28 U/L (13-56); Albumin, Serum 3.9 g/dL (3.2-5.0); Alkaline Phosphatase 69 U/L (45-117); Bilirubin, Direct 0.16 mg/dL (0.00-0.30); CRP < 2.90 mg/L (0.0-3.0); Calcium,Total 9.7 mg/dL (8.5-10.1); Creatinine, Serum 1.36 mg/dL (0.55-1.02); EST Glomerular Filtration Rate 40 mL/min (>60); Est Glom Filt Rate - Afr Amer 48 mL/min (>60); Globulin 3.2 g/dL (2.2-4.2); Phosphorus 3.8 mg/dL (2.5-4.9); Protein, Total 7.1 g/dL (6.4-8.2)
[2021-11-29 15:18] LABS: Vitamin D 1,25-Dihydroxy 30.8 pg/mL (24.8-81.5)
[2021-11-30 12:08] LABS: PROEL- A/G Ratio 1.6 (0.7-1.7); PROEL- Albumin 4.1 g/dL (2.9-4.4); PROEL- Alpha-1 Globulin 0.2 g/dL (0.0-0.4); PROEL- Alpha-2 Globulin 0.6 g/dL (0.4-1.0); PROEL- Beta Globulin 0.9 g/dL (0.7-1.3); PROEL- Globulin, Total 2.6 g/dL (2.2-3.9); PROEL- TOTAL PROTEIN 6.7 g/dL (6.0-8.5); PROELU- Alpha-1-Globulin,Ur 2.1 % (.); PROELU- Alpha-2-Globulin,Ur 20.7 % (.); PROELU- Beta Globulin, Ur 27.5 % (.); PROELU- Gamma Globulin, Ur 8.7 % (.); Total Protein, Ur 13.2 mg/dL (Not Estab.)
== END | disposition home or self-care (01) ==
LOC: LAB 06:53
PROVIDERS: PCP Internal Medicine; Referring Provider Internal Medicine; Visit Provider Internal Medicine
DX: Q78.2 Osteopetrosis (principal)
CPT/HCPCS: 36415; 80076; 82306; 82310; 82565; 82652; 83970; 84100; 84165; 84166; 84443; 85025; 85652; 86140

== ENCOUNTER → 2021-11-27 | Outpatient (CLI) | payer MEDICARE, SELFPAY ==
[2021-11-27 11:10] LABS: 24HR UR TOTAL VOLUME 1800 ml; Calcium Urine pH Range 1; Urine Calcium (Random) 5.5 (Not Estab.)
== END | disposition home or self-care (01) ==
LOC: LABSPEC 10:31
PROVIDERS: PCP Internal Medicine; Referring Provider Internal Medicine; Visit Provider Internal Medicine
DX: Q78.2 Osteopetrosis (principal)
CPT/HCPCS: 81050; 82340

== ENCOUNTER → 2022-05-04 | Outpatient (CLI) | payer MEDICARE, SELFPAY ==
[2022-05-04 11:19] LABS: Absolute Lymphocyte Count 1.27 X10^3/uL (0.83-4.51); Absolute Neutrophil Count 2.2 X10^3/uL (2.0-7.7); Basophil# 0.05 X10^3/uL; Basophil% 1.3 % (0-1); Eosinophil# 0.15 X10^3/uL; Eosinophils% 3.8 % (0-5); Hematocrit 39.3 % (37-47); Hemoglobin 12.7 g/dL (12.0-15.0); Lymphocyte # 1.27 X10^3/ul (0.83-4.51); Lymphocyte % 31.8 % (19-41); Mean Corp Hgb Conc 32.3 g/dL (32-36); Mean Corpuscular Hgb 29.3 pg (27.0-32.0); Mean Corpuscular Volume 90.8 fL (81-99); Mean Platelet Vol. 10.4 fl (6.2-12.0); Monocyte# 0.29 X10^3/uL; Monocyte% 7.3 % (0-10); NRBC Flagged by Analyzer 0 % (0-5); Neutrophil # 2.22 X10^3/uL (2.7-7.7); Neutrophil % 55.5 % (47-70); Platelet Count 256 K/mm3 (150-450); RBC Distribution Width CV 12.7 % (11.6-14.6); RBC Distribution Width SD 42.2 fl (35.1-43.9); Red Blood Count 4.33 M/mm3 (4.2-5.4)
[2022-05-04 11:34] LABS: Glucose, Dipstick Normal (Normal); Ketone-Dipstick Negative (Negative); Nitrite-Dipstick Negative (Negative); Occult Blood-Urine Negative /ul (Negative); Protein-Dipstick Negative (Negative); Specific Gravity, Urine 1.015 (1.002-1.030); Urine Bilirubin Dipstick Negative (Negative); Urine Urobilinogen Normal (Normal)
[2022-05-04 11:35] LABS: Color, Urine Yellow (Yellow); Leukocyte Esterase-Dipstick Negative /ul (Negative); Urine Clarity Clear (Clear)
[2022-05-04 11:45] LABS: Microalbumin,Random Urine < 5.0 mg/L (NO RANGE EST.)
[2022-05-04 12:03] LABS: ALB/GLOB Ratio 1.3 RATIO (0.9-2.4); AST(SGOT) 20 U/L (15-37); Alanine Aminotransfer ALT/SGPT 20 U/L (13-56); Albumin, Serum 4.1 g/dL (3.2-5.0); Alkaline Phosphatase 70 U/L (45-117); Anion Gap 5 (5-15); BUN 18 mg/dL (7-18); BUN/Creat Ratio 12.9 RATIO (10-20); Calcium,Total 9.4 mg/dL (8.5-10.1); Chloride 106 mmol/L (98-107); Cholesterol 210 mg/dL (200); Creatinine, Serum 1.39 mg/dL (0.55-1.02); EST Glomerular Filtration Rate 39 mL/min (>60); Est Glom Filt Rate - Afr Amer 47 mL/min (>60); Globulin 3.1 g/dL (2.2-4.2); Glucose 92 mg/dL (74-106); High Density Lipoprotein 67 mg/dL; Potassium 4.3 mmol/L (3.5-5.1); Protein, Total 7.2 g/dL (6.4-8.2); Sodium Level 139 mmol/L (136-145); Thyroid Stim Hormone (TSH) 1.46 uIU/mL (0.358-3.74); Triglycerides 77 mg/dL; Very Low Density Lipoprotein 15 mg/dL (5-40)
[2022-05-06 17:32] LABS: Vitamin D 1,25-Dihydroxy 65.6 pg/mL (24.8-81.5)
== END | disposition home or self-care (01) ==
LOC: LAB 10:40
PROVIDERS: PCP Internal Medicine; Referring Provider Internal Medicine; Visit Provider Internal Medicine
DX: R73.09 Other abnormal glucose (principal); I10 Essential (primary) hypertension
CPT/HCPCS: 36415; 80053; 80061; 81002; 82043; 82570; 82652; 84443; 85025

== ENCOUNTER → 2022-05-11 | Outpatient (CLI) | payer MEDICARE, SELFPAY ==
--- NOTE | 2022-05-11 07:42 | RAD_ITS ---
STUDY: X-RAY - ESOPHAGUS (BARIUM SWALLOW) WITH FLUOROSCOPY REASON FOR EXAM: Female, 82 years old. Dysphagia, unspecified type TECHNIQUE: 16 view(s) of the esophagus were obtained following swallowing of barium. FLUOROSCOPY TIME (if supplied): (42 seconds) minutes/seconds COMPARISON: Comparison is made with prior study dated 02/13/2016. FINDINGS: There is no demonstrated esophageal foreign body. There is no demonstrated stricture or mucosal abnormality. Normal gastroesophageal junction, without a demonstrated hiatal hernia. There is prominence of the cricopharyngeus muscle at the origin of the esophagus. The patient ingested a 12 mm tablet of barium without any difficulty. There is evidence of aspiration into the right mainstem bronchus and bronchi in the posterior medial segment of the right lower lobe. There is atherosclerotic calcification of the aortic arch with tortuosity of the descending aorta. Normal visualized pulmonary parenchyma. There are diffuse degenerative changes of the visualized thoracic spine. RAD/Esophagus Single Contrast IMPRESSION: Prominence of the cricopharyngeus muscle at the origin of the esophagus. Aspiration of barium into the right lung as described. Electronically Signed: Tone Mary MD at 10:36 EST ,
== END | disposition home or self-care (01) ==
PROVIDERS: PCP Internal Medicine; Referring Provider Internal Medicine; Visit Provider Internal Medicine
DX: R13.10 Dysphagia, unspecified (principal)
CPT/HCPCS: 74220

== ENCOUNTER → 2022-06-16 | Outpatient (CLI) | payer MEDICARE, SELFPAY ==
--- NOTE | 2022-06-16 15:16 | ST.MBS ---
Modified Barium Swallow - Patient Information Study Date: 06/16/22 Study Time: 13:00 Direct Billable Minutes: 96 Total Minutes procedure & reportin Diagnosis: Dysphagia, unspecified (R13.10) Referring Physician: Giulia Mitchell Reason for Referral: Objectively assess swallow function, assess risk for aspiration, and determine recommendations for least restrictive diet textures and compensatory strategies to improve safety of swallow. Medical History: Jackie Eastman is an 82-year-old female with history of anemia, carpal tunnel syndrome, HLD (hyperlipidemia), HTN (hypertension), left ventricular hypertrophy, skin cancer, thrombocytosis, and vitamin D deficiency. Patient reports she has no history of head or neck surgeries or injuries; however, she has a history of neuralgia of the neck. Patient reports no history of GERD. Additionally, she reports occasional sensation of food feeling stuck in her throat for ~8 months now, which results in ?getting choked-up.? Patient reports foods eventually clear with a liquid wash. See EMR for full report. Patient referred for swallow evaluation after aspirating barium during esophagram into right lower lobe, completed on 05/11/22.? Current Diet Ordered: Soft solids / Thin liquids Dentition: Upper Dentures, Partials - lower Mental Status: WNL Respiratory Status: Oxygenating on Room Air - Penetration-Aspiration Scale Penetration-Aspiration Scale: OBJECTIVE ASSESSMENT OF SWALLOW FUNCTION (QUANTITATIVE ? PER TRIAL): PENETRATION / ASPIRATION SCALE ([place]): 1 = does not enter airway 2 = enters airway/above vocal folds/ejected 3 = enters airway/above vocal folds/not ejected 4 = enters airway/contacts vocal folds/ejected 5 = enters airway/contacts vocal folds/not ejected 6 = enters airway/below vocal folds/ejected 7 = enters airway/below vocal folds/not ejected despite effort 8 = enters airway/below vocal folds/no effort VIDEOFLOROSCOPIC SCALE SCORE (MORTON): Grade I = aspiration of material that has penetrated into the laryngeal vestibule, intact cough reflex Grade II = aspiration < 10 % of the bolus, intact cough reflex Grade III = aspiration of < 10 % of the bolus, reduced cough reflex or aspiration of > 10 % of the bolus, intact cough reflex Grade IV = aspiration of > 10 % of the bolus, reduced cough reflex - Penetration-Aspiration Scale Score Thin Liquid via teaspoon Result: 2= enter airway/above vocal folds/ejected Thin Liquid via teaspoon Trial 2 Result: 1= does not enter airway Thin Liquid via large single sip from cup Result: 8= enters airway/below vocal folds/no effort [place] Thick Liquid via large single sip from cup Result: 2= enter airway/above vocal folds/ejected Thin Liquid via large sip from cup despite verbal cue for small sip Result: 2= enter airway/above vocal folds/ejected Pudding via teaspoon with esophageal screen Result: 1= does not enter airway Thin Liquid via large single sip from straw with esophageal screen Result: 5= enters airways/contacts vocal folds/not ejected Thin Liquid via 10cc cup sip Result: 2= enter airway/above vocal folds/ejected 1/2 Cookie Result: 1= does not enter airway Thin Liquid via 10cc cup sip with effortful swallow Result: 2= enter airway/above vocal folds/ejected - reflexive throat clear cleared contrast from the laryngeal vestibule - Oral Phase Labial Seal: No Labial Escape Tongue Control During Bolus Hold: Posterior escape of greater than half of bolus Bolus Preparation/Mastication: Disorganized chewing/mashing with solid pieces of bolus unchewed Oral Residue: Residue collection on oral structures - Pharyngeal Phase Initiation of Pharyngeal Swallow: Bolus head in pyriforms - thin by tsp onset in the laryngeal vestibule Soft Palate Elevation: Trace column of contrast/air between soft palate and pharyngeal wall Laryngeal Elevation: Partial superior movement thyroid cart/partial apprx aryt-epig petiole Anterior Hyoid Excursion: Partial anterior movement Epiglottic Movement: Partial inversion Laryngeal Vestibule Closure at Height of Swallow: Incomplete; narrow column of air/contrast in laryngeal vestibule Pharyngeal Stripping Wave: Present - diminished Pharyngoesophageal Segment Opening: Parital distension and partial duration; parital obstruction of flow Tongue Base Retraction: Wide column of contrast between tongue base & post. pharyngeal wall Pharyngeal Residue: Collection of residue within or on pharyngeal structures - Esophageal Phase Esophageal Clearance: Esophageal retention w/ retrograde flow below pharyngoesophageal seg. - Treatment Strategies Effects of treatment strategies attemped:: Chin tuck = little to no impact to clear residues from the vallecula Decreased bolus size = effective; however patient consumed large sips despite verbal cues from TELEPRINTER INSTALLER student to take a small sip - Diagnosis/Impression Diagnosis: Moderate oropharyngeal phase dysphagia (R13.12) Impression: The oral phase is primarily marked by... -Decreased bolus control with >1/2 of the bolus spilling posteriorly to the pyriforms prior to swallow onset observed with thin liquids especially. -Prolonged mastication of 1/2 cookie with small piece of cookie bolus appeared un-chewed. The pharyngeal phase is primarily marked by... -Decreased airway closure during the swallow due to decreased anterior hyoid excursion, partial epiglottic inversion, and decreased laryngeal elevation. -Severely decreased tongue base retraction, mildly decreased UES opening/duration, and moderately decreased pharyngeal stripping wave with resulting moderate pharyngeal residues after the swallow. Patient is at increased risk for post prandial aspiration provided moderate pharyngeal residues, especially with large sips of liquids. -SILENT aspiration of thin liquids by large cup sip. Consistent laryngeal penetration of liquid trials. Increased bolus size resulted in increased depth of laryngeal penetration, which did not reliably eject with large sip by straw placing patient at increased risk for aspiration. The esophageal phase is primarily marked by... -Esophageal retention of pudding in mid and lower esophagus with retrograde flow remaining well below UES. This esophageal retention somewhat improved when provided thin liquid wash. -CP bar present at the level of C-5, which did not appear to impact bolus clearance through the UES. - Recommendations Diet: Thin Liquids - Easy to Chew textures (IDDSI Level 7) Comment: Frequent oral care. If experiencing regurgitation, discontinue meal and resume at a later time. Compensatory Strategies: Small Bites, Small Sips - consider use of 10cc bolus control cup if unable to reliably decrease bolus size, Slow Rate, Alternate bites/solids and sips/liquids, Sitting upright, Remain sitting upright for 30 minutes after PO intake Recommend Repeat Modified Barium Swallow: TBD Need for Skilled Speech Therapy Services: Yes Comment: Will recommend the patient for outpatient dysphagia therapy to address deficits in oropharyngeal swallow function. Will recommend the patient for oropharyngeal strengthening to improve lingual control, hyolaryngeal elevation/excursion, tongue base retraction, and pharyngeal contraction (lingual resistance exercises, Karla, Kris, effortful). The patient would benefit from thorough education regarding diet recommendations and recommended compensatory strategies. Recommended Referrals: GI Consult - proceed with GI consult to Dr. Ruvalcaba - pt awaiting call to schedule Education Completed: 1. Described result of evaluation., 2. Pt understands evaluation & agrees with goals and treatment plan., 7. Pt requires further education on strategies & risks. - Status Active ST Patient: Active - Contact Information [facility] Speech Therapy:: Laurie Chow M.A. [facility]TELEPRINTER INSTALLER Speech-Language Pathologist [facility] [address] [place] [address] [email or web address] [phone] 06/16/22 15:22
== END | disposition home or self-care (01) ==
LOC: RAD 12:50
PROVIDERS: PCP Internal Medicine; Referring Provider Internal Medicine; Visit Provider Internal Medicine
DX: R13.10 Dysphagia, unspecified (principal)
CPT/HCPCS: 74230; 92611

== ENCOUNTER → 2022-07-19 | Outpatient (CLI) | payer MEDICARE, SELFPAY ==
--- NOTE | 2022-07-19 10:29 | CT_ITS ---
STUDY: CT BRAIN WITHOUT CONTRAST REASON FOR EXAM: Female, 82 years old. DYSPHAGIA RADIATION DOSAGE (If Supplied By Facility): CTDIvol = ( 44.99 ) mGy, DLP = ( 762.36 ) mGycm TECHNIQUE: Transaxial CT imaging of the brain was performed without administration of intravenous contrast material. Individualized dose optimization techniques were used for this CT. COMPARISON: No relevant priors. FINDINGS: Normal soft tissue structures. Arachnoid granulations noted in the inner table of the skull. Normal size ventricles and extra-axial spaces for the patient''s age. Normal white matter tracts of the cerebral hemispheres. There are small punctate calcifications of the basal ganglia which are seen in the aging brain as a normal variant. Normal brainstem. Normal cerebellum. There is no intracranial hemorrhage. There are no findings of an acute ischemic infarction. Normal visualized paranasal sinuses. CT/Brain/Head without Contrast IMPRESSION: Chronic involutional changes of the brain. No acute hemorrhage Electronically Signed: Fuad Mathew MD at 11:03 EDT ,
== END | disposition home or self-care (01) ==
LOC: CT 10:24
PROVIDERS: PCP Internal Medicine; Referring Provider Internal Medicine; Visit Provider Internal Medicine
DX: R13.10 Dysphagia, unspecified (principal)
CPT/HCPCS: 70450

== ENCOUNTER → 2022-07-20 | Outpatient (CLI) | payer MEDICARE, SELFPAY ==
--- NOTE | 2022-07-20 08:44 | ECHOD_ITS ---
Reason For Study: LVH Procedure This was a 2D Doppler, Color Flow transthoracic echocardiogram. Exam performed in department. Left Ventricle Normal size and thickness. The left ventricular ejection fraction is 65 %. Diastolic function is indeterminate. Right Ventricle Normal right ventricle. Atria The left and right atria are normal. Mitral Valve Mild mitral annular calcification. Tricuspid Valve Mild tricuspid valve insufficiency. Normal pulmonary artery pressure. Aortic Valve Aortic sclerosis, no stenosis. Pulmonic Valve The pulmonic valve is not well visualized. Great Vessels Normal sized aortic root. Pericardium/Pleural No pericardial effusion. MMode/2D Measurements & Calculations LVIDd: 4.3 cm IVSd: 1.0 cm LVOT diam: 2.1 cm LVIDs: 3.0 cm LVPWd: 0.83 cm LVOT area: 3.3 cm2 RVDd: 3.4 cm FS: 30.0 % Ao root diam: 3.1 cm LAV(MOD-bp): 69.5 ml LVAd ap4: 26.0 cm2 LAV(MOD-bp) Indexed: 38.5 ml/m2 LVLd ap4: 8.2 cm LAV(MOD-sp2): 70.4 ml EDV(MOD-sp4): 68.1 ml LAV(MOD-sp4): 60.3 ml EDV(sp4-el): 69.5 ml LVAs ap4: 11.3 cm2 LVLs ap4: 6.0 cm ESV(MOD-sp4): 18.3 ml ESV(sp4-el): 17.9 ml EF(MOD-sp4): 73.2 % EF(sp4-el): 74.2 % SV(MOD-sp4): 49.8 ml SV(sp4-el): 51.6 ml LA A4 area: 19.7 cm2 LA dimension(2D): 3.4 cm RA A4 area: 12.2 cm2 Time Measurements MV dec time: 0.26 sec Doppler Measurements & Calculations MV E max saúl: 81.4 cm/sec Lat Peak E' Saúl: 8.2 cm/sec Med Peak E' Saúl: 10.2 cm/sec MV A max saúl: 86.7 cm/sec E/E' lat: 9.9 E/E' med: 8.0 MV E/A: 0.94 MV V2 max: 79.1 cm/sec Ao V2 max: 183.8 cm/sec MV max P.5 mmHg MV dec slope: 326.6 cm/sec2 Ao max P.6 mmHg MV V2 mean: 41.9 cm/sec Ao V2 mean: 119.1 cm/sec MV mean P.91 mmHg Ao mean P.6 mmHg MV V2 VTI: 31.8 cm Ao V2 VTI: 39.3 cm AV (velocity ratio): 0.62 MVA(VTI): 2.6 cm2 MARIBEL(I,D): 2.1 cm2 MARIBEL(V,D): 1.6 cm2 LV V1 max: 90.6 cm/sec SV(LVOT): 81.2 ml PA V2 max: 86.4 cm/sec LV V1 max P.3 mmHg PA V2 mean: 58.3 cm/sec LV V1 mean P.9 mmHg LV V1 mean: 63.9 cm/sec LV V1 VTI: 24.4 cm TR max saúl: 241.4 cm/sec TR max P.3 mmHg ECHO/Echo Complete Interpretation Summary The left ventricular ejection fraction is 65 %. Diastolic function is indeterminate. Mild mitral annular calcification. Aortic sclerosis, no stenosis. Mild tricuspid valve insufficiency. Ordering Physician: Giulia Mitchell Referring Physician: Giulia Mitchell Performed By: Clari Mcbride RCS
== END | disposition home or self-care (01) ==
LOC: CVS 08:42
PROVIDERS: PCP Internal Medicine; Referring Provider Internal Medicine; Visit Provider Internal Medicine
DX: I51.7 Cardiomegaly (principal)
CPT/HCPCS: 93306

== ENCOUNTER → 2022-09-01 | Outpatient (CLI) | payer MEDICARE, SELFPAY ==
[2022-09-01 08:15] LABS: Bacteria 0 SEEN /hpf (None Seen); Mucous, Urine 0 SEEN /hpf (<or=2+); Red Blood Cells-Urine 0 SEEN /hpf (0-5); Squamous Epithelial Cells - UA 0 SEEN /hpf (5-10)
[2022-09-01 08:36] LABS: Absolute Lymphocyte Count 1.26 X10^3/uL (0.83-4.51); Absolute Neutrophil Count 2.5 X10^3/uL (2.0-7.7); Basophil# 0.05 X10^3/uL; Basophil% 1.1 % (0-1); Eosinophils% 4.6 % (0-5); Hematocrit 34.5 % (37-47); Hemoglobin 11.4 g/dL (12.0-15.0); Lymphocyte # 1.26 X10^3/ul (0.83-4.51); Lymphocyte % 28.7 % (19-41); Mean Corpuscular Volume 90.8 fL (81-99); Mean Platelet Vol. 9.7 fl (6.2-12.0); Monocyte# 0.41 X10^3/uL; Monocyte% 9.3 % (0-10); NRBC Flagged by Analyzer 0 % (0-5); Neutrophil # 2.45 X10^3/uL (2.7-7.7); Neutrophil % 55.8 % (47-70); Platelet Count 242 K/mm3 (150-450); RBC Distribution Width CV 12.5 % (11.6-14.6); RBC Distribution Width SD 41.6 fl (35.1-43.9); White Blood Count 4.4 K/mm3 (4.4-11.0)
[2022-09-01 08:54] LABS: Color, Urine Yellow (Yellow); Glucose, Dipstick Normal (Normal); Ketone-Dipstick Negative (Negative); Leukocyte Esterase-Dipstick 25 /ul (Negative); Nitrite-Dipstick Negative (Negative); Occult Blood-Urine Negative /ul (Negative); Protein-Dipstick Negative (Negative); Urine Bilirubin Dipstick Negative (Negative); Urine Clarity Sl. Cloudy (Clear); Urine Urobilinogen Normal (Normal)
[2022-09-01 09:00] LABS: Vitamin D,25 Hydroxy 92.2 ng/mL
[2022-09-01 09:01] LABS: Microalbumin,Random Urine < 5.0 mg/L (NO RANGE EST.)
[2022-09-01 09:02] LABS: White Blood Cells 0-5 SEEN /hpf (0-5)
[2022-09-01 09:22] LABS: ALB/GLOB Ratio 1.2 RATIO (0.9-2.4); AST(SGOT) 21 U/L (15-37); Alanine Aminotransfer ALT/SGPT 20 U/L (13-56); Albumin, Serum 3.6 g/dL (3.2-5.0); Alkaline Phosphatase 52 U/L (45-117); Anion Gap 6 (5-15); BUN 13 mg/dL (7-18); BUN/Creat Ratio 10.9 RATIO (10-20); Calcium,Total 7.9 mg/dL (8.5-10.1); Chloride 100 mmol/L (98-107); Cholesterol 194 mg/dL (200); Creatinine, Serum 1.19 mg/dL (0.55-1.02); EST Glomerular Filtration Rate 46 mL/min (>60); Est Glom Filt Rate - Afr Amer 56 mL/min (>60); Globulin 2.9 g/dL (2.2-4.2); Glucose 87 mg/dL (74-106); High Density Lipoprotein 67 mg/dL; Potassium 4.2 mmol/L (3.5-5.1); Protein, Total 6.5 g/dL (6.4-8.2); Sodium Level 132 mmol/L (136-145); Thyroid Stim Hormone (TSH) 2.32 uIU/mL (0.358-3.74); Triglycerides 63 mg/dL; Very Low Density Lipoprotein 13 mg/dL (5-40)
== END | disposition home or self-care (01) ==
LOC: LAB 08:06
PROVIDERS: PCP Internal Medicine; Referring Provider Internal Medicine; Visit Provider Internal Medicine
DX: E55.9 Vitamin D deficiency, unspecified (principal); R73.09 Other abnormal glucose; E78.5 Hyperlipidemia, unspecified
CPT/HCPCS: 36415; 80053; 80061; 81001; 82043; 82306; 82570; 84443; 85025

== ENCOUNTER 2022-09-02 09:30 | Outpatient (RCR) | payer MEDICARE, SELFPAY ==
--- NOTE | 2022-06-28 08:50 | ST ---
[facility] Speech Pathology [address] [place] [address] Modified Barium Swallow Study MR#: [id number] Acct: [id number] Name: JACKIE CORDOVA Rep #: [id number] : 1940 82 From: Laurie Chow M.A., [facility]-MANAGER [employer]ANDSCAPE Modified Barium Swallow - Patient Information Study Date: 06/16/22 Study Time: 13:00 Direct Billable Minutes: 96 Total Minutes procedure & reportin Diagnosis: Dysphagia, unspecified (R13.10) Referring Physician: Giulia Mitchell Reason for Referral: Objectively assess swallow function, assess risk for aspiration, and determine recommendations for least restrictive diet textures and compensatory strategies to improve safety of swallow. Medical History: Jackie Cordova is an 82-year-old female with history of anemia, carpal tunnel syndrome, HLD (hyperlipidemia), HTN (hypertension), left ventricular hypertrophy, skin cancer, thrombocytosis, and vitamin D deficiency. Patient reports she has no history of head or neck surgeries or injuries; however, she has a history of neuralgia of the neck. Patient reports no history of GERD. Additionally, she reports occasional sensation of food feeling stuck in her throat for ~8 months now, which results in ?getting choked-up.? Patient reports foods eventually clear with a liquid wash. See EMR for full report. Patient referred for swallow evaluation after aspirating barium during esophagram into right lower lobe, completed on 05/11/22.? Current Diet Ordered: Soft solids / Thin liquids Dentition: Upper Dentures, Partials - lower Mental Status: WNL Respiratory Status: Oxygenating on Room Air - Penetration-Aspiration Scale Penetration-Aspiration Scale: OBJECTIVE ASSESSMENT OF SWALLOW FUNCTION (QUANTITATIVE ? PER TRIAL): PENETRATION / ASPIRATION SCALE ([place]): 1 = does not enter airway 2 = enters airway/above vocal folds/ejected 3 = enters airway/above vocal folds/not ejected 4 = enters airway/contacts vocal folds/ejected 5 = enters airway/contacts vocal folds/not ejected 6 = enters airway/below vocal folds/ejected 7 = enters airway/below vocal folds/not ejected despite effort 8 = enters airway/below vocal folds/no effort VIDEOFLOROSCOPIC SCALE SCORE ([place]): Grade I = aspiration of material that has penetrated into the laryngeal vestibule, intact cough reflex Grade II = aspiration < 10 % of the bolus, intact cough reflex Grade III = aspiration of < 10 % of the bolus, reduced cough reflex or aspiration of > 10 % of the bolus, intact cough reflex Grade IV = aspiration of > 10 % of the bolus, reduced cough reflex - Penetration-Aspiration Scale Score Thin Liquid via teaspoon Result: 2= enter airway/above vocal folds/ejected Thin Liquid via teaspoon Trial 2 Result: 1= does not enter airway Thin Liquid via large single sip from cup Result: 8= enters airway/below vocal folds/no effort [place] Thick Liquid via large single sip from cup Result: 2= enter airway/above vocal folds/ejected Thin Liquid via large sip from cup despite verbal cue for small sip Result: 2= enter airway/above vocal folds/ejected Pudding via teaspoon with esophageal screen Result: 1= does not enter airway Thin Liquid via large single sip from straw with esophageal screen Result: 5= enters airways/contacts vocal folds/not ejected Thin Liquid via 10cc cup sip Result: 2= enter airway/above vocal folds/ejected 1/2 Cookie Result: 1= does not enter airway Thin Liquid via 10cc cup sip with effortful swallow Result: 2= enter airway/above vocal folds/ejected - reflexive throat clear cleared contrast from the laryngeal vestibule - Oral Phase Labial Seal: No Labial Escape Tongue Control During Bolus Hold: Posterior escape of greater than half of bolus Bolus Preparation/Mastication: Disorganized chewing/mashing with solid pieces of bolus unchewed Oral Residue: Residue collection on oral structures - Pharyngeal Phase Initiation of Pharyngeal Swallow: Bolus head in pyriforms - thin by tsp onset in the laryngeal vestibule Soft Palate Elevation: Trace column of contrast/air between soft palate and pharyngeal wall Laryngeal Elevation: Partial superior movement thyroid cart/partial apprx aryt-epig petiole Anterior Hyoid Excursion: Partial anterior movement Epiglottic Movement: Partial inversion Laryngeal Vestibule Closure at Height of Swallow: Incomplete; narrow column of air/contrast in laryngeal vestibule Pharyngeal Stripping Wave: Present - diminished Pharyngoesophageal Segment Opening: Parital distension and partial duration; parital obstruction of flow Tongue Base Retraction: Wide column of contrast between tongue base & post. pharyngeal wall Pharyngeal Residue: Collection of residue within or on pharyngeal structures - Esophageal Phase Esophageal Clearance: Esophageal retention w/ retrograde flow below pharyngoesophageal seg. - Treatment Strategies Effects of treatment strategies attemped:: Chin tuck = little to no impact to clear residues from the vallecula Decreased bolus size = effective; however patient consumed large sips despite verbal cues from MANAGER LANDSCAPE student to take a small sip - Diagnosis/Impression Diagnosis: Moderate oropharyngeal phase dysphagia (R13.12) Impression: The oral phase is primarily marked by... -Decreased bolus control with >1/2 of the bolus spilling posteriorly to the pyriforms prior to swallow onset observed with thin liquids especially. -Prolonged mastication of 1/2 cookie with small piece of cookie bolus appeared un-chewed. The pharyngeal phase is primarily marked by... -Decreased airway closure during the swallow due to decreased anterior hyoid excursion, partial epiglottic inversion, and decreased laryngeal elevation. -Severely decreased tongue base retraction, mildly decreased UES opening/duration, and moderately decreased pharyngeal stripping wave with resulting moderate pharyngeal residues after the swallow. Patient is at increased risk for post prandial aspiration provided moderate pharyngeal residues, especially with large sips of liquids. -SILENT aspiration of thin liquids by large cup sip. Consistent laryngeal penetration of liquid trials. Increased bolus size resulted in increased depth of laryngeal penetration, which did not reliably eject with large sip by straw placing patient at increased risk for aspiration. The esophageal phase is primarily marked by... -Esophageal retention of pudding in mid and lower esophagus with retrograde flow remaining well below UES. This esophageal retention somewhat improved when provided thin liquid wash. -CP bar present at the level of C-5, which did not appear to impact bolus clearance through the UES. - Recommendations Diet: Thin Liquids - Easy to Chew textures (IDDSI Level 7) Comment: Frequent oral care. If experiencing regurgitation, discontinue meal and resume at a later time. Compensatory Strategies: Small Bites, Small Sips - consider use of 10cc bolus control cup if unable to reliably decrease bolus size, Slow Rate, Alternate bites/solids and sips/liquids, Sitting upright, Remain sitting upright for 30 minutes after PO intake Recommend Repeat Modified Barium Swallow: TBD Need for Skilled Speech Therapy Services: Yes Comment: Will recommend the patient for outpatient dysphagia therapy to address deficits in oropharyngeal swallow function. Will recommend the patient for oropharyngeal strengthening to improve lingual control, hyolaryngeal elevation/excursion, tongue base retraction, and pharyngeal contraction (lingual resistance exercises, Karla, Kris, effortful). The patient would benefit from thorough education regarding diet recommendations and recommended compensatory strategies. Recommended Referrals: GI Consult - proceed with GI consult to Dr. Ruvalcaba - pt awaiting call to schedule Education Completed: 1. Described result of evaluation., 2. Pt understands evaluation & agrees with goals and treatment plan., 7. Pt requires further education on strategies & risks. - Status Active ST Patient: Active - Contact Information [facility] Speech Therapy:: Laurie Chow M.A. CCC-MANAGER [employer]SCAPE Speech-Language Pathologist [address] [address] [email or web address] [phone] 06/16/22 15:22 06/16/22 1603 <Electronically signed by Laurie Chow M.A., CCC-MANAGER [employer]ANDSCAPE> Date/Time
--- NOTE | 2022-06-28 13:26 | HP.SP.EV_ITS ---
Visit History - Visit Info Date of Eval: 06/28/22 Visit: 1 Pen Tender: INES - History Attending Doctor: Referring Doctor: Reason for Referral: DYSPHAGIA/RX HERE Previous speech therapy: No Other Relevant Medical History/Diagnoses/Surgery: JACKIE CORDOVA is an 82 year old female who presents to [facility] speech therapy due to concerns with moderate oropharyngeal dysphagia (SEE MBSS REPORT BELOW). Pt referred to speech therapy following an aspiration event when GI was performing an esophagram. Pt reporting that she likes to drink a lot of water throughout the day to improve her hydration. Pt reports often taking large sequential sips when exercising or when taking a break from doing housework. Pt also confirming that she'll take large sequential sips when consuming her medications to make sure they go down. Smoking Status: Unknown if ever smoked - Diagnosis Diagnosis: Moderate Oropharyngeal Dysphagia (R13.12) - Pain Is pain an issue with your current prescribed condition?: No - Personal Preferred language: Faroese History - History Date of Eval: 06/28/22 Previous speech therapy: No Other Relevant Medical History/Diagnoses/Surgery: JACKIE CORDOVA is an 82 year old female who presents to [facility] speech therapy due to concerns with moderate oropharyngeal dysphagia (SEE MBSS REPORT BELOW). Pt referred to speech therapy following an aspiration event when GI was performing an esophagram. Pt reporting that she likes to drink a lot of water throughout the day to improve her hydration. Pt reports often taking large sequential sips when exercising or when taking a break from doing housework. Pt also confirming that she'll take large sequential sips when consuming her medications to make sure they go down. Smoking Status: Unknown if ever smoked Hx Tobacco Use: No - Pain Is pain an issue with your current prescribed condition?: No Patient Allergies - Allergies Allergies No Known Allergies Allergy (Verified 01/05/22 08:08) Objective Dysphagia - Swallowing Impairment Contributing Factors to Swallowing Impairment: Reduced Alertness or Attention, Impaired Oral-Pharyngeal Transport, Reduced Laryngeal Excursion - Impact Impact on Safety & Functioning: Risk for Aspiration - Recommendations Swallowing Treatment: Yes - Diet Texture Recommendations Solids: Easy to Chew (Level 7) Liquids: Thin (Level 0) - Safety Saftey Precautions/Swallowing Recommendations (Check all that Apply): Reduce Distractions, Upright Position at Least 30 Minutes After Meals, Small Sips & Bites when Eating, No Straw, Multiple Swallows Other: Thorough education provided to Pt today re: the importance of consuming solids and drinks with small proportions. Reviewed Pt's MBSS videos to show her the discoordination of her muscles when she takes a large sip. Discussed poor tongue base retraction, moderate pharyngeal residue, SILENT aspiration following a large sip, and retention in her esophagus. Demonstrated in a cup marked in cc/mL what 10cc of water looks like - given MBSS rx sips this size. Asked Pt to practice feeling what that size of sip feels like to her when she goes to drink it. During MBSS Pt had difficulty decreasing bolus size even when provided with verbal cues - suspect Pt may continue to benefit from education re: bolus size. Also discussed implementing a safe swallowing strategy of slowing down and taking a brief pause in between drinks or bites. Pt reporting this would be difficult for her when she is exercising or taking medicine. Asked Pt how she feels after taking large sequential drinks and she reports, now that she's been asked to think about it, that her chest feels heavy. Discussed with Pt that this was the expected response given her level of esophageal retention and pharyngeal retention. Educated how smaller sips would help reduce the amount of residue. Suggested we work on altering drink size with meals and drinks throughout the day first and then we will focus attention to working out and taking medication. Pt was not initially receptive to taking medication with a puree. Will follow up. - Results Swallowing Within Normal Limits: No Swallowing Diagnosis: Oropharyngeal Phase Dysphagia (R13.12) Severity: Moderate Modified Barium Results Hx MBS Report Entered: Yes MBS Results (from prior exam): 06/28/22 08:50 Speech Therapy by Denisse Hernandez [facility] Speech Pathology [address] [place] [address] Modified Barium Swallow Study MR#: [id number] Acct: [id number] Name: JACKIE CORDOVA Rep #:[id number] : 1940 82 From: Laurie Reza [facility] PURIFICATION WORKER Modified Barium Swallow - Patient Information Study Date: 06/16/22 Study Time: 13:00 Direct Billable Minutes: 96 Total Minutes procedure & reportin Diagnosis: Dysphagia, unspecified (R13.10) Referring Physician: Giulia Mitchell Reason for Referral: Objectively assess swallow function, assess risk for aspiration, and determine recommendations for least restrictive diet textures and compensatory strategies to improve safety of swallow. Medical History: Jackie Cordova is an 82-year-old female with history of anemia, carpal tunnel syndrome, HLD (hyperlipidemia), HTN (hypertension), left ventricular hypertrophy, skin cancer, thrombocytosis, and vitamin D deficiency. Patient reports she has no history of head or neck surgeries or injuries; however, she has a history of neuralgia of the neck. Patient reports no history of GERD. Additionally, she reports occasional sensation of food feeling stuck in her throat for ~8 months now, which results in ?getting choked-up.? Patient reports foods eventually clear with a liquid wash. See EMR for full report. Patient referred for swallow evaluation after aspirating barium during esophagram into right lower lobe, completed on 05/11/22.? Current Diet Ordered: Soft solids / Thin liquids Dentition: Upper Dentures, Partials - lower Mental Status: WNL Respiratory Status: Oxygenating on Room Air - Penetration-Aspiration Scale Penetration-Aspiration Scale: OBJECTIVE ASSESSMENT OF SWALLOW FUNCTION (QUANTITATIVE ? PER TRIAL): PENETRATION / ASPIRATION SCALE (MORTON): 1 = does not enter airway 2 = enters airway/above vocal folds/ejected 3 = enters airway/above vocal folds/not ejected 4 = enters airway/contacts vocal folds/ejected 5 = enters airway/contacts vocal folds/not ejected 6 = enters airway/below vocal folds/ejected 7 = enters airway/below vocal folds/not ejected despite effort 8 = enters airway/below vocal folds/no effort VIDEOFLOROSCOPIC SCALE SCORE (MORTON): Grade I = aspiration of material that has penetrated into the laryngeal vestibule, intact cough reflex Grade II = aspiration < 10 % of the bolus, intact cough reflex Grade III = aspiration of < 10 % of the bolus, reduced cough reflex or aspiration of > 10 % of the bolus, intact cough reflex Grade IV = aspiration of > 10 % of the bolus, reduced cough reflex - Penetration-Aspiration Scale Score Thin Liquid via teaspoon Result: 2= enter airway/above vocal folds/ejected Thin Liquid via teaspoon Trial 2 Result: 1= does not enter airway Thin Liquid via large single sip from cup Result: 8= enters airway/below vocal folds/no effort Sam [place] Thick Liquid via large single sip from cup Result: 2= enter airway/above vocal folds/ejected Thin Liquid via large sip from cup despite verbal cue for small sip Result: 2= enter airway/above vocal folds/ejected Pudding via teaspoon with esophageal screen Result: 1= does not enter airway Thin Liquid via large single sip from straw with esophageal screen Result: 5= enters airways/contacts vocal folds/not ejected Thin Liquid via 10cc cup sip Result: 2= enter airway/above vocal folds/ejected 1/2 Cookie Result: 1= does not enter airway Thin Liquid via 10cc cup sip with effortful swallow Result: 2= enter airway/above vocal folds/ejected - reflexive throat clear cleared contrast from the laryngeal vestibule - Oral Phase Labial Seal: No Labial Escape Tongue Control During Bolus Hold: Posterior escape of greater than half of bolus Bolus Preparation/Mastication: Disorganized chewing/mashing with solid pieces of bolus unchewed Oral Residue: Residue collection on oral structures - Pharyngeal Phase Initiation of Pharyngeal Swallow: Bolus head in pyriforms - thin by tsp onset in the laryngeal vestibule Soft Palate Elevation: Trace column of contrast/air between soft palate and pharyngeal wall Laryngeal Elevation: Partial superior movement thyroid cart/partial apprx aryt- epig petiole Anterior Hyoid Excursion: Partial anterior movement Epiglottic Movement: Partial inversion Laryngeal Vestibule Closure at Height of Swallow: Incomplete; narrow column of air/contrast in laryngeal vestibule Pharyngeal Stripping Wave: Present - diminished Pharyngoesophageal Segment Opening: Parital distension and partial duration; parital obstruction of flow Tongue Base Retraction: Wide column of contrast between tongue base & post. pharyngeal wall Pharyngeal Residue: Collection of residue within or on pharyngeal structures - Esophageal Phase Esophageal Clearance: Esophageal retention w/ retrograde flow below pharyngoesophageal seg. - Treatment Strategies Effects of treatment strategies attemped:: Chin tuck = little to no impact to clear residues from the vallecula Decreased bolus size = effective; however patient consumed large sips despite verbal cues from FAT PURIFICATION WORKER student to take a small sip - Diagnosis/Impression Diagnosis: Moderate oropharyngeal phase dysphagia (R13.12) Impression: The oral phase is primarily marked by... -Decreased bolus control with >1/2 of the bolus spilling posteriorly to the pyriforms prior to swallow onset observed with thin liquids especially. -Prolonged mastication of 1/2 cookie with small piece of cookie bolus appeared un-chewed. The pharyngeal phase is primarily marked by... -Decreased airway closure during the swallow due to decreased anterior hyoid excursion, partial epiglottic inversion, and decreased laryngeal elevation. -Severely decreased tongue base retraction, mildly decreased UES opening/duration, and moderately decreased pharyngeal stripping wave with resulting moderate pharyngeal residues after the swallow. Patient is at increas ed risk for post prandial aspiration provided moderate pharyngeal residues, especially with large sips of liquids. -SILENT aspiration of thin liquids by large cup sip. Consistent laryngeal penetration of liquid trials. Increased bolus size resulted in increased depth of laryngeal penetration, which did not reliably eject with large sip by straw placing patient at increased risk for aspiration. The esophageal phase is primarily marked by... -Esophageal retention of pudding in mid and lower esophagus with retrograde flow remaining well below UES. This esophageal retention somewhat improved when provided thin liquid wash. -CP bar present at the level of C-5, which did not appear to impact bolus clearance through the UES. - Recommendations Diet: Thin Liquids - Easy to Chew textures (IDDSI Level 7) Comment: Frequent oral care. If experiencing regurgitation, discontinue meal and resume at a later time. Compensatory Strategies: Small Bites, Small Sips - consider use of 10cc bolus control cup if unable to reliably decrease bolus size, Slow Rate, Alternate bites/solids and sips/liquids, Sitting upright, Remain sitting upright for 30 minutes after PO intake Recommend Repeat Modified Barium Swallow: TBD Need for Skilled Speech Therapy Services: Yes Comment: Will recommend the patient for outpatient dysphagia therapy to address deficits in oropharyngeal swallow function. Will recommend the patient for oropharyngeal strengthening to improve lingual control, hyolaryngeal elevation/excursion, tongue base retraction, and pharyngeal contraction (lingual resistance exercises, Karla, Kris, effortful). The patient would benefit from thorough education regarding diet recommendations and recommended compensatory strategies. Recommended Referrals: GI Consult - proceed with GI consult to Dr. Ruvalcaba - pt awaiting call to schedule Education Completed: 1. Described result of evaluation., 2. Pt understands evaluation & agrees with goals and treatment plan., 7. Pt requires further education on strategies & risks. - Status Active ST Patient: Active - Contact Information [facility] Speech Therapy:: Laurie Chow M.A. CCC-FAT PURIFICATION WORKER Speech-Language Pathologist [place] [address] [place] [address] [email or web address] [phone] 06/16/22 15:22 06/16/22 1603 <Electronically signed by Laurie Chow M.A., CCC-FAT PURIFICATION WORKER> Date/Time Initialized on 06/28/22 08:50 - END OF NOTE Swallowing Performance Scale - Swallowing Performance Scale Swallowing Performance Scale Result: 5 Moderate Plan - Plan Plan: Will rx Pt for skilled outpatient tx to address moderate deficits in oropharyngeal dysphagia. Pt would benefit from training and education re: adhering to safe swallowing strategies and compensatory strategies, diet tolerance checks, and swallowing exercises to aid in oropharyngeal streng thening. Without skilled intervention, Pt is at risk for consuming a restrictive diet putting her at risk for aspiration pneumonia and atrophy of laryngeal musculature. - Recommendations Treatment Warranted: Yes Treatment Warranted: Dysphagia - Frequency Frequency: 1x/Week Duration: 6 Weeks - Goals that are Established Determination:: Goals will be added/modified as deemed necessary and appropriate. Therapy will be discontinued when results of re-evaluation indicate therapy is no longer needed or lack of progress has been documented. - Goal #1-5 Goal #1: Jackie will complete oropharyngeal exercises for 10 reps, 3x/day independently to improve tongue base retraction, PES opening/distention, and hyolaryngeal elevation and excursion with no cues within 6 weeks of evaluation. Goal #2: Jackie will demonstrate understanding of behaviors that impact safety of the swallow by charting frequency of instances of unhealthy intake behaviors (fast rate of intake, large bites/drinks) as they occur throughout the session/day with 80% acc independently within 6 weeks of evaluation. Goal #3: Jackie will complete oral motor exercises to aid in bolus manipulation, oral strengthening, and ROM with no cues for 10 reps, 2x/day within 6 weeks of evaluation. Education - Patient has Indicated that the Following Identified Educational Needs: None The Patient has indicated that they have no educational or learning abilities that may effect their care.: Yes - Patient Instruction Patient Education: Diagnosis, Treatment Plan, Diet Level Person Taught: Patient Teaching Method: Discussion, Demonstration Response to teaching: Return demonstration, Verbalize understanding, Reinforcement needed
--- NOTE | 2022-09-28 10:25 | HP.SP.DC_ITS ---
ST Discharge Summary - Discharged: Discharge: ANDREEA CORDOVA is an 82 year old female who presented to [facility] on 06/28/22 d/t concerns with dysphagia. She participated in 2 additional treatments session targeting education and implementation of oropharyngeal strengthening exercises along with use of safe swallowing strategy recommendations. Pt deemed appropriate for d/c from speech therapy at this time d/t demonstrating knowledge of exercises and safe swallowing strategies. Thank you for allowing me to participate in the care of your patient. Will reevaluate at Pt?s request following script from physician.
== END 2022-09-02 19:00 | disposition home or self-care (01) ==
LOC: SP 09:30
PROVIDERS: PCP Internal Medicine; Referring Provider Internal Medicine; Visit Provider Internal Medicine
DX: R13.12 Dysphagia, oropharyngeal phase (principal)
CPT/HCPCS: 92526; 92610

== ENCOUNTER → 2022-10-13 | Outpatient (CLI) | payer MEDICARE, SELFPAY ==
--- NOTE | 2022-10-13 07:03 | BI_ITS ---
MAMMOGRAPHY - BILATERAL SCREENING REASON FOR EXAM: Female, 82 years old. Routine annual screening examination. PERTINENT HISTORY: Sisters with breast cancer. TECHNIQUE: Digital bilateral breast anitra (3D mammographic acquisition) in the CC and MLO projections. 2-D mediolateral oblique (MLO) and craniocaudad (CC) views of both breasts were obtained. CAD: Full Field Digital Mammography with Computer Added Detection was performed. COMPARISON: Comparison is made with prior study dated October 28, 2021 and October 22, 2020. FINDINGS: Breast Composition: The breasts are extremely dense, which lowers the sensitivity of mammography. There are no dominant masses or suspicious calcifications. Stable 4.2 mm calcified nodule in the deep central medial aspect of the left breast. No other significant abnormalities are identified. There has been no significant change since the prior study. BI/SCRN MAMM (CAD)W/ANITRA BILAT IMPRESSION: Stable bilateral screening mammogram. Yearly follow-up mammogram recommended. (A) ASSESSMENT CATEGORY: BIRADS Category 2: Benign. A letter regarding these results will be sent to the patient by the facility within 30 days. Approximately 10% of breast cancers are not detected by mammography. A normal mammogram should not delay biopsy of a clinically suspicious abnormality. [id number] Electronically Signed: Tone Mary MD at 8:44 EDT ,
== END | disposition home or self-care (01) ==
LOC: OPBD 07:00
PROVIDERS: PCP Internal Medicine; Referring Provider Internal Medicine; Visit Provider Internal Medicine
DX: Z12.31 Encounter for screening mammogram for malignant neoplasm of breast (principal); Z80.3 Family history of malignant neoplasm of breast
CPT/HCPCS: 77063; 77067

== ENCOUNTER → 2022-11-19 | Day surgery (SDC) | payer MEDICARE, SELFPAY ==
[2022-11-19] MEDS: Lidocaine Jelly 2% 20 ML Syringe (URO-JET) 1 APPLIC (11:39)
[2022-11-19 11:43] VITALS: BP 128/94; PULSE 64; RESP 15; TEMP 36.4; O2SAT 99
== END | disposition home or self-care (01) ==
LOC: EN 11:28
PROVIDERS: PCP Internal Medicine; Referring Provider Internal Medicine Gastroenterology; Visit Provider Internal Medicine Gastroenterology
PROC: F00ZJWZ Instrumental Swallowing and Oral Function Assessment using Swallowing Equipment (ICD-10-PCS; CPT 43235; principal; 2022-11-19 07:25)
DX: R13.10 Dysphagia, unspecified (principal)
CPT/HCPCS: 91010

== ENCOUNTER 2022-12-08 08:46 | Day surgery (SDC) | payer MEDICARE, SELFPAY ==
[2022-12-08] VITALS (7 sets, daily range): BP systolic 99–140; BP diastolic 62–69; PULSE 50–57; RESP 16–18; TEMP 36.4–37.2; O2SAT 92–98; BMI 24.3
[2022-12-08] MEDS: Lactated Ringers 1,000 ML 15 ML IV (09:29)
--- NOTE | 2022-12-08 09:43 | PCM.HP.BLA ---
History and Physical Date of Admission: 12/08/22 82 F who presents to the office today for initial consult. Has been experiencing dysphagia the last year. Has seen speech therapy but was unable to finish sessions. Has trouble with breads, meats, lettuce and bananas. Must take small bites and sips of water. Denies ever having heartburn. Also has constipation. Has tried Linzess in the past with no relief. Is able to have BM every couple days with the use of daily Metamucil and otc laxatives. Barium Swallow 3.8.23?moderate oropharyngeal phase dysphagia.?Biochemical?CBC, CMP, LFT, triglycerides, lipids, Vit D25, TSH without pertinent abnormality.? ?
--- NOTE | 2022-12-08 10:00 | EGD_PTH ---
PATIENT: ANDREEA CORDOVA LOC: EN U#:[id number] AGE/SX: 82/F ROOM: RE12/08/[address]: Dr. Ivan Ruvalcaba DO : 1940 BED: DIS: 12/08/2022 SPEC #: [id number] RECD: 12/08/22 11:45 STATUS: SANTIAGO REQ #: [id number] PHILLIP: 12/08/22 10:[address]: Ivan Ruvalcaba DEPT: SURGICAL PATHOLOGY RECD BY: Caterina Crowell ENTERED: 12/08/22 12:52 SP TYPE: EGD BIOPSY YOLA DR: Dr. Giulia Mitchell DO Tissues: A - Gastric mucous membrane B - Esophagus, NOS Procedures: Special Stain Group II Surgery Specimen Level IV Alcian Blue/PAS (control) HEADER OPERATION: EGD, biopsy, dilation PRE-OP DIAGNOSIS: Dysphagia TISSUE SUBMITTED: A - Gastric cardia biopsy, B - Distal esophagus biopsy MICROSCOPIC DIAGNOSIS A. Gastric cardia, biopsy: Moderate chronic active gastritis. See comment. B. Distal esophagus, biopsy: Fragments of gastroesophageal mucosa with moderate chronic inflammation. Intestinal metaplasia (goblet cell metaplasia) not identified. See comment. Angelo 12/09/2022 COMMENT A. The results of immunohistochemistry for Helicobacter pylori will be reported separately ([id number]). B. Alcian blue/PAS stain with matched control is used in the evaluation of the specimen. MICROSCOPIC DESCRIPTION Slides are reviewed. GROSS DESCRIPTION A - Received in fixative is one container labeled with the patient's name and designated gastric cardia biopsy. The specimen consists of multiple irregular fragments of light zamora soft tissue that in aggregate measure 1.0 x 0.3 x 0.1 cm. The specimen is totally submitted in one cassette. B - Received in fixative is one container labeled with the patient's name and designated distal esophagus biopsy. The specimen consists of two irregular fragments of light zamora soft tissue that in aggregate measure 0.8 x 0.3 x 0.1 cm. The specimen is totally submitted in one cassette. / TIA:estrellita 12/08/2022 TC:3 CPT: 70063 x2, 34837
--- NOTE | 2022-12-08 10:00 | IMM_PTH ---
PATIENT: ANDREEA CORDOVA LOC: EN U#:[id number] AGE/SX: 82/F ROOM: RE12/08/[address]: Dr. Ivan Ruvalcaba DO : 1940 BED: DIS: 12/08/2022 SPEC #: [id number] RECD: 12/08/22 13:58 STATUS: SANTIAGO REQ #: [id number] PHILLIP: 12/08/22 10:[address]: Ivan Ruvalcaba DEPT: IMMUNOHISTOCHEMISTRY RECD BY: Valentina Christiansen ENTERED: 12/08/22 13:59 SP TYPE: IMMUNO OTHR DR: Dr. Giulia Mitchell DO Tissues: A - Stomach, NOS Procedures: H Pylori (initial) PHYSICIAN & INSTITUTION [place] [id number] SPECIMEN INFORMATION: Tissue Source: A - Gastric cardia Clinical Info: Dysphagia Specimen Number: [id number] CPT code: 93748 METHODOLOGY: Deparaffinized sections of prefer/formalin-fixed tissue or PAP/DQ stained slides are incubated with monoclonal/polyclonal antibodies/oligonucleotide probes. Localization is made via biotin free immunoperoxidase method. Appropriate controls are performed and reacted as expected. Results on target cell population are indicated in the following table: RESULTS: ANTIBODY / CLONE RESULT Block A H Pylori (polyclonal) positive These tests were developed and their performance characteristics determined by [facility]. They may not have been cleared or approved by the U.S. Food and Drug Administration. The FDA has determined that such clearance or approval is not necessary. The above immunohistochemical/dualISH markers are ordered and reviewed by the Pathologist. INTERPRETATION: A. Gastric cardia, biopsy: Positive for numerous Helicobacter pylori organisms. SJ:estrellita 12/09/2022
--- NOTE | 2022-12-08 10:06 | OP.EGD_ITS ---
Patient Name: Jackie Eastman Procedure Date: 12/08/2022 9:44 AM Date of : 1940 Age: 82 Procedure: Upper GI endoscopy Indications: Dysphagia Providers: Ivan Ruvalcaba DO Medicines: Monitored Anesthesia Care Patient Profile: This is an 82 year old female. Refer to note in patient chart for documentation of history and physical. Patient has symptoms of chronic dysphagia and dysphagia with solids. Complications: No immediate complications. Procedure: Pre-Anesthesia Assessment: - Prior to the procedure, a History and Physical was performed, and patient medications and allergies were reviewed. The risks and benefits of the procedure and the sedation options and risks were discussed with the patient. All questions were answered and informed consent was obtained. Patient identification and proposed procedure were verified by the physician in the pre-procedure area. Mental Status Examination: alert and oriented. Airway Examination: normal oropharyngeal airway and neck mobility. Respiratory Examination: clear to auscultation. CV Examination: normal. Prophylactic Antibiotics: The patient does not require prophylactic antibiotics. Prior Anticoagulants: The patient has taken no anticoagulant or antiplatelet agents. After reviewing the risks and benefits, the patient was deemed in satisfactory condition to undergo the procedure. The anesthesia plan was to use monitored anesthesia care (MAC). Immediately prior to administration of medications, the patient was re-assessed for adequacy to receive sedatives. The heart rate, respiratory rate, oxygen saturations, blood pressure, adequacy of pulmonary ventilation, and response to care were monitored throughout the procedure. The physical status of the patient was re-assessed after the procedure. After obtaining informed consent, the endoscope was passed under direct vision. Throughout the procedure, the patient's blood pressure, pulse, and oxygen saturations were monitored continuously. The gastroscope was introduced through the mouth, and advanced to the second part of duodenum. The upper GI endoscopy was accomplished without difficulty. The patient tolerated the procedure well. Scope In: 9:54:09 AM Scope Out: 9:59:20 AM Total Procedure Duration Time 0 hours 5 minutes 11 seconds Findings: LA Grade A (one or more mucosal breaks less than 5 mm, not extending between tops of 2 mucosal folds) esophagitis with no bleeding was found 36 to 37 cm from the incisors. Biopsies were taken with a cold forceps for histology. Verification of patient identification for the specimen was done. Estimated blood loss was minimal. A moderate Schatzki ring was found in the lower third of the esophagus. A guidewire was placed and the scope was withdrawn. Dilation was performed with a Savary dilator with no resistance at 51 Fr. The dilation site was examined and showed moderate mucosal disruption. Estimated blood loss: none. A medium-sized hiatal hernia was present. Patchy mild inflammation characterized by friability was found in the cardia and in the gastric antrum. Biopsies were taken with a cold forceps for histology. Verification of patient identification for the specimen was done. Estimated blood loss was minimal. Biopsies were taken with a cold forceps for Helicobacter pylori testing. Verification of patient identification for the specimen was done. Estimated blood loss was minimal. The exam of the duodenum was otherwise normal. Impression: - LA Grade A non-erosive esophagitis with no bleeding. Biopsied. - Moderate Schatzki ring. Dilated. - Medium-sized hiatal hernia. - Chronic gastritis. Biopsied. Recommendation: - Discharge patient to home. - Resume previous diet. - Continue present medications. Procedure Code(s): --- Professional --- 95043, Esophagogastroduodenoscopy, flexible, transoral; with insertion of guide wire followed by passage of dilator(s) through esophagus over guide wire 41369, 59,51, Esophagogastroduodenoscopy, flexible, transoral; with biopsy, single or multiple CPT copyright 2021 [employer]. All rights reserved. The codes documented in this report are preliminary and upon social media intern review may be revised to meet current compliance requirements. Ivan Ruvalcaba DO 12/08/2022 10:05:59 AM This report has been signed electronically. Number of Addenda: 0 Note Initiated On: 12/08/2022 9:44 AM
--- NOTE | 2022-12-08 10:06 | OP.CCLET_ITS ---
12/08/2022 Giulia Mitchell [address] [place] [address] Re : Upper GI endoscopy procedure for Jackie Eastman Dear Dr. Mitchell This procedure was performed on Thursday, December 08, 2022. My impressions and recommendations are as follows: Impressions : - LA Grade A non-erosive esophagitis with no bleeding. Biopsied. - Moderate Schatzki ring. Dilated. - Medium-sized hiatal hernia. - Chronic gastritis. Biopsied. Recommendations : - Discharge patient to home. - Resume previous diet. - Continue present medications. My findings are described in the full procedure note, which is enclosed. If I can be of further assistance, please feel free to contact me at . Sincerely, Ivan Ruvalcaba, 12/08/2022 10:05:59 AM This report has been signed electronically.
== END 2022-12-08 10:56 | disposition home or self-care (01) ==
LOC: EN 08:47 → AC 08:49
PROVIDERS: PCP Internal Medicine; Referring Provider Internal Medicine; Visit Provider Internal Medicine Gastroenterology
PROC: 0DJ08ZZ Inspection of Upper Intestinal Tract, Via Natural or Artificial Opening Endoscopic (ICD-10-PCS; CPT 43235; principal; 2022-12-08 09:55)
DX: K44.9 Diaphragmatic hernia without obstruction or gangrene (principal); R13.10 Dysphagia, unspecified; B96.81 Helicobacter pylori [H. pylori] as the cause of diseases classified elsewhere; K20.80 Other esophagitis without bleeding; K29.50 Unspecified chronic gastritis without bleeding; K59.00 Constipation, unspecified
CPT/HCPCS: 43248; 43239; 88305; 88313; 88342; J7120; C1769; J2405

== ENCOUNTER → 2022-12-30 | Outpatient (CLI) | payer MEDICARE, SELFPAY ==
[2022-12-30 09:00] LABS: Absolute Neutrophil Count 2.4 X10^3/uL (2.0-7.7); Basophil# 0.06 X10^3/uL; Basophil% 1.4 % (0-1); Eosinophil# 0.18 X10^3/uL; Eosinophils% 4.3 % (0-5); Hematocrit 38.4 % (37-47); Hemoglobin 12.2 g/dL (12.0-15.0); Lymphocyte % 30.9 % (19-41); Mean Corp Hgb Conc 31.8 g/dL (32-36); Mean Corpuscular Hgb 29.8 pg (27.0-32.0); Mean Corpuscular Volume 93.9 fL (81-99); Mean Platelet Vol. 10.5 fl (6.2-12.0); Monocyte# 0.31 X10^3/uL; Monocyte% 7.4 % (0-10); NRBC Flagged by Analyzer 0 % (0-5); Neutrophil # 2.35 X10^3/uL (2.7-7.7); Neutrophil % 55.8 % (47-70); Platelet Count 238 K/mm3 (150-450); RBC Distribution Width CV 13.1 % (11.6-14.6); RBC Distribution Width SD 44.8 fl (35.1-43.9); Red Blood Count 4.09 M/mm3 (4.2-5.4); White Blood Count 4.2 K/mm3 (4.4-11.0)
[2022-12-30 09:08] LABS: Prothrombin Time (Protime)PT. 12.9 SECONDS (11.7-14.9)
[2022-12-30 09:28] LABS: ALB/GLOB Ratio 1.1 RATIO (0.9-2.4); AST(SGOT) 22 U/L (15-37); Alanine Aminotransfer ALT/SGPT 27 U/L (13-56); Albumin, Serum 3.9 g/dL (3.2-5.0); Alkaline Phosphatase 59 U/L (45-117); Anion Gap 3 (5-15); BUN 15 mg/dL (7-18); BUN/Creat Ratio 10.7 RATIO (10-20); Calcium,Total 8.9 mg/dL (8.5-10.1); Chloride 108 mmol/L (98-107); EST Glomerular Filtration Rate 38 mL/min (>60); Est Glom Filt Rate - Afr Amer 46 mL/min (>60); Globulin 3.4 g/dL (2.2-4.2); Glucose 73 mg/dL (74-106); Potassium 4.4 mmol/L (3.5-5.1); Protein, Total 7.3 g/dL (6.4-8.2); Sodium Level 139 mmol/L (136-145)
[2022-12-31 16:09] LABS: Alpha-1-Globulins 0.2 g/dL (0.0-0.4); Alpha-2-Globulins 0.6 g/dL (0.4-1.0); Cytoplasmic Ab (C-ANCA) <1:20 titer (Neg:<1:20); Gamma Globulin 0.9 g/dL (0.4-1.8); Immunoglobulin A 137 mg/dL (64-422); Immunoglobulin G 974 mg/dL (586-1602); Immunoglobulin M 58 mg/dL (26-217); PROEL- TOTAL PROTEIN 6.6 g/dL (6.0-8.5); Perinuclear Ab (P-ANCA) <1:20 titer (Neg:<1:20)
[2023-01-02 07:07] LABS: Anti-Centromere B Ab <0.2 AI (0.0-0.9); Anti-Chromatin <0.2 AI (0.0-0.9); Anti-Jo <0.2 AI (0.0-0.9); Anti-Scleroderma-70 AB <0.2 AI (0.0-0.9); Anti-dsDNA Ab <1 IU/mL (0-9); Beef <0.10 kU/L (Class 0); Chocolate <0.10 kU/L (Class 0); Clam <0.10 kU/L (Class 0); Codfish <0.10 kU/L (Class 0); Corn <0.10 kU/L (Class 0); Egg, White <0.10 kU/L (Class 0); Egg, Whole <0.10 kU/L (Class 0); Milk (Cow) 0.12 kU/L (Class 0/I); Peanut <0.10 kU/L (Class 0); Pork <0.10 kU/L (Class 0); RNP Ab <0.2 AI (0.0-0.9); SCALLOP <0.10 kU/L (Class 0); SESAME SEED <0.10 kU/L (Class 0); SJOGREN'S Anti-SS-A test 0.3 AI (0.0-0.9); SJOGREN'S Anti-SS-B test < 0.2 AI (0.0-0.9); Shrimp <0.10 kU/L (Class 0); Smith Ab <0.2 AI (0.0-0.9); Soybean <0.10 kU/L (Class 0); Walnut, (Food) <0.10 kU/L (Class 0); Wheat <0.10 kU/L (Class 0)
== END | disposition home or self-care (01) ==
LOC: LAB 08:08
PROVIDERS: PCP Internal Medicine; Referring Provider Internal Medicine Gastroenterology; Visit Provider Internal Medicine Gastroenterology
DX: R13.10 Dysphagia, unspecified (principal); R07.9 Chest pain, unspecified; T78.40XA Allergy, unspecified, initial encounter
CPT/HCPCS: 36415; 80053; 82784; 84165; 85025; 85610; 86003; 86005; 86225; 86235; 86256; 86334

== ENCOUNTER → 2023-02-22 | Outpatient (CLI) | payer MEDICARE, SELFPAY ==
[2023-02-25 11:08] LABS: H. PYLORI STOOL AG Negative (Negative)
== END | disposition home or self-care (01) ==
LOC: LAB 10:22
PROVIDERS: PCP Internal Medicine; Referring Provider Internal Medicine Gastroenterology; Visit Provider Internal Medicine Gastroenterology
DX: A04.8 Other specified bacterial intestinal infections (principal)
CPT/HCPCS: 87338

== ENCOUNTER → 2023-07-06 | Outpatient (CLI) | payer MEDICARE, SELFPAY ==
--- NOTE | 2023-07-06 08:35 | NEURO ---
NCS and/or EMG Patient Report Ordering Doctor: Giulia Mitchell DATE OF SERVICE: 07/06/23 Clinical Summary: 83 year old female patient with symptoms of numbness, tingling, and pain in the distal lower extremities. Nerve Conduction Studies Summary: All SNAP's were absent bilaterally. The peroneal-EDB CMAP amplitudes were reduced bilaterally. The peroneal motor conduction velocity was reduced bilaterally. Needle Examination Summary: Needle examination of select muscles of the bilateral lower extremities demonstrated a higher proportion of motor unit action potentials with reduced recruitment, increased amplitude, increased duration, and polyphasia in the left semitendinosus, left vastus lateralis, left vastus medialis, left tibialis anterior, bilateral peroneus longus, and right medial gastrocnemius muscles. 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 Multi Select Codes Neurology Neurology Interp Codes: 41217-89 Musc test done w/n test comp (interp) (2) and 56851-03 Nrv cndj test 7-8 studies (interp)
== END | disposition home or self-care (01) ==
LOC: PSN 06:45
PROVIDERS: PCP Internal Medicine; Referring Provider Internal Medicine; Visit Provider Internal Medicine
DX: R20.2 Paresthesia of skin (principal)
CPT/HCPCS: 95886; 95910

== ENCOUNTER → 2023-08-09 | Outpatient (CLI) | payer MEDICARE, SELFPAY ==
[2023-08-09 07:11] LABS: Hematocrit 37.6 % (37-47); Hemoglobin 12.1 g/dL (12.0-15.0); Mean Corp Hgb Conc 32.2 g/dL (32-36); Mean Corpuscular Volume 93.1 fL (81-99); Mean Platelet Vol. 10.5 fl (6.2-12.0); Platelet Count 225 K/mm3 (150-450); RBC Distribution Width CV 13.3 % (11.6-14.6); RBC Distribution Width SD 45.5 fl (35.1-43.9); Red Blood Count 4.04 M/mm3 (4.2-5.4); White Blood Count 4.7 K/mm3 (4.4-11.0)
[2023-08-09 07:49] LABS: ALB/GLOB Ratio 1.3 RATIO (0.9-2.4); AST(SGOT) 18 U/L (15-37); Alanine Aminotransfer ALT/SGPT 20 U/L (13-56); Albumin, Serum 3.9 g/dL (3.2-5.0); Alkaline Phosphatase 50 U/L (45-117); Anion Gap 2 (5-15); BUN 16 mg/dL (7-18); BUN/Creat Ratio 11.6 RATIO (10-20); Calcium,Total 9.3 mg/dL (8.5-10.1); Chloride 107 mmol/L (98-107); Creatinine, Serum 1.38 mg/dL (0.55-1.02); EST Glomerular Filtration Rate 39 mL/min (>60); Est Glom Filt Rate - Afr Amer 47 mL/min (>60); Globulin 3.1 g/dL (2.2-4.2); Glucose 88 mg/dL (74-106); Potassium 4.2 mmol/L (3.5-5.1); Sodium Level 139 mmol/L (136-145)
[2023-08-09 09:19] LABS: Vitamin B12 1573 pg/mL (211-911)
[2023-08-12 16:09] LABS: Free Kappa Light Chains 20.6 mg/L (3.3-19.4); Free Lambda Light Chains 21.7 mg/L (5.7-26.3); Vitamin B1, Thiamine 106.7 nmol/L (66.5-200.0)
== END | disposition home or self-care (01) ==
LOC: LAB 06:04
PROVIDERS: PCP Internal Medicine; Referring Provider Psychiatry & Neurology Neurology; Visit Provider Psychiatry & Neurology Neurology
DX: R07.9 Chest pain, unspecified (principal); G62.9 Polyneuropathy, unspecified; R13.12 Dysphagia, oropharyngeal phase
CPT/HCPCS: 36415; 80053; 82607; 82746; 83883; 84425; 84443; 85027

== ENCOUNTER → 2023-08-24 | Outpatient (CLI) | payer MEDICARE, SELFPAY ==
[2023-08-29 15:31] LABS: Albumin 4.1 g/dL (2.9-4.4); Alpha-1-Globulins 0.2 g/dL (0.0-0.4); Alpha-2-Globulins 0.5 g/dL (0.4-1.0); Gamma Globulin 0.9 g/dL (0.4-1.8); Immunoglobulin A 122 mg/dL (64-422); Immunoglobulin G 959 mg/dL (586-1602); Immunoglobulin M 57 mg/dL (26-217); PROEL- TOTAL PROTEIN 6.4 g/dL (6.0-8.5)
== END | disposition home or self-care (01) ==
LOC: LAB 13:50
PROVIDERS: PCP Internal Medicine; Visit Provider Psychiatry & Neurology Neurology
DX: G62.9 Polyneuropathy, unspecified (principal)
CPT/HCPCS: 36415; 82784; 84165; 86334; 86335

== ENCOUNTER → 2023-11-29 | Outpatient (CLI) | payer MEDICARE, SELFPAY ==
[2023-12-01 15:09] LABS: Albumin 3.7 g/dL (2.9-4.4); Alpha-1-Globulins 0.3 g/dL (0.0-0.4); Alpha-2-Globulins 0.5 g/dL (0.4-1.0); Gamma Globulin 0.9 g/dL (0.4-1.8); Immunoglobulin A 123 mg/dL (64-422); Immunoglobulin G 917 mg/dL (586-1602); Immunoglobulin M 51 mg/dL (26-217); PROEL- TOTAL PROTEIN 6.3 g/dL (6.0-8.5)
== END | disposition home or self-care (01) ==
LOC: MTLAB 09:35
PROVIDERS: PCP Internal Medicine; Referring Provider Psychiatry & Neurology Neurology; Visit Provider Psychiatry & Neurology Neurology
DX: G62.9 Polyneuropathy, unspecified (principal)
CPT/HCPCS: 36415; 82784; 84165; 86334; 86335

== ENCOUNTER 2023-12-20 08:40 | Emergency (ER) | payer MEDICARE, SELFPAY ==
[2023-12-20 08:40] VITALS: BP 157/84; PULSE 59; RESP 14; TEMP 36.6; O2SAT 98
--- NOTE | 2023-12-20 08:55 | CT_ITS ---
STUDY: CT CERVICAL SPINE WITHOUT CONTRAST REASON FOR EXAM: Female, 83 years old. Fall RADIATION DOSAGE (If Supplied By Facility): CTDIvol = ( 15.60 ) mGy, DLP = ( 316.46 ) mGycm TECHNIQUE: High resolution transaxial imaging was performed without contrast material. Sagittal and coronal images were reconstructed. Individualized dose optimization techniques were used for this CT. COMPARISON: None FINDINGS: Normal craniovertebral junction. There are degenerative changes of the anterior atlantoaxial articulation. Normal odontoid process. There is straightening of the normal cervical lordosis. Facet joint osteoarthritis and hypertrophy. C2-3: Facet joint osteoarthritis on the right side with hypertrophy causing right neural foraminal stenosis. Uncovertebral arthrosis. Disc space narrowing C3-4: Moderate degree of disc space narrowing. Facet joint osteoarthritis. Uncovertebral arthrosis. Bilateral neural foraminal stenosis. C4-5: Marked degree of disc space narrowing and spondylosis. Facet joint osteoarthritis and hypertrophy. Bilateral neural foraminal stenosis. C5-6: Moderate degree of disc space narrowing. Spondylosis. Uncovertebral arthrosis. Bilateral neural foraminal stenosis. C6-7: Moderate degree of disc space narrowing. Spondylosis. No significant stenosis seen. C7-T1: Normal endplates. Normal disc height and morphology. Normal central canal and intervertebral neuroforamina. Calcification of the carotid bifurcations bilaterally. CT/Spine Cervical without Contras IMPRESSION: Multilevel degenerative changes, as described above. Electronically Signed: Tone Mary MD at 10:05 EDT ,
--- NOTE | 2023-12-20 08:55 | CT_ITS ---
STUDY: CT BRAIN WITHOUT CONTRAST REASON FOR EXAM: Female, 83 years old. Fall RADIATION DOSAGE (If Supplied By Facility): CTDIvol = ( 44.99 ) mGy, DLP = ( 745.49 ) mGycm TECHNIQUE: Transaxial CT imaging of the brain was performed without administration of intravenous contrast material. Individualized dose optimization techniques were used for this CT. COMPARISON: No relevant priors. FINDINGS: Normal soft tissue structures. There is hyperostosis frontalis internus. There is mild cerebral atrophy with widening of the extra-axial spaces and ventricular dilatation. Normal white matter tracts of the cerebral hemispheres. There are small punctate calcifications of the basal ganglia which are seen in the aging brain as a normal variant. Normal brainstem. Normal cerebellum. There is no intracranial hemorrhage. There are no findings of an acute ischemic infarction. Normal visualized paranasal sinuses. CT/Brain/Head without Contrast IMPRESSION: Chronic involutional changes of the brain. Electronically Signed: Tone Mary MD at 10:00 EDT ,
--- NOTE | 2023-12-20 08:55 | CT_ITS ---
STUDY: CT FACIAL BONES WITHOUT CONTRAST REASON FOR EXAM: Female, 83 years old. Fall RADIATION DOSAGE (If Supplied By Facility): CTDIvol = ( 29.38 ) mGy, DLP = ( 496.03 ) mGycm TECHNIQUE: The patient was scanned in a multi detector CT scanner. Sagittal and coronal images were reconstructed. Individualized dose optimization techniques were used for this CT. COMPARISON: None. FINDINGS: Normal soft tissue structures. Normal orbital cook and orbital contents. Normal nasal bones and anterior nasal spine. Normal facial bones. There is no demonstrated fracture. Normal visualized paranasal sinuses. CT/Sinus/Facial Bone IMPRESSION: Normal unenhanced CT of the facial bones. Electronically Signed: Tone Mary MD at 10:01 EDT ,
--- NOTE | 2023-12-20 08:56 | EX.ED.GENINJ ---
HPI History of Present Illness Chief Complaint: Head Injury Detail of Chief Complaint: Fall with head injury Informant: patient and spouse/S.O. Narrative Narrative: Patient presents to the emergency department after sustaining a fall this morning. Patient states that she was done with her walker and she was checking her garbage. Patient accidentally stepped on a hickory nut causing her to fall. Patient try to get her hands up and did strike her face on the ground. No loss of consciousness. She complains of pain in her neck but she states that she has chronic pain. She has been ambulatory since the fall. She is unsure of her last tetanus. Patient not anticoagulated. [facility] Medical History (Updated 12/20/23 @ 10:[address] Arpit Nogueira, DO) Wears partial dentures Wears dentures Post-menopausal Depression Difficulty swallowing Non-smoker Leg cramps History of echocardiogram Anemia Thrombocytosis Left ventricular hypertrophy Vitamin D deficiency Skin cancer HLD (hyperlipidemia) HTN (hypertension) Home Medications ?Medication ?Instructions ?Recorded ?Last Taken ?Type lisinopril 5 mg tablet 5 mg PO DAILY 09/25/21 12/08/22 History rosuvastatin 10 mg tablet (Crestor) 10 mg PO DAILY 09/25/21 Unknown History cholecalciferol (vitamin D3) 25 50 mcg PO DAILY 12/03/22 Unknown History mcg (1,000 unit) capsule (Vitamin D3) duloxetine 60 mg capsule,delayed 60 mg PO .every evening #30 caps 11/29/23 Unknown Rx release gabapentin 100 mg capsule 100 mg PO QHS #30 caps 11/29/23 Unknown Rx gabapentin 300 mg capsule 300 mg PO QHS #30 caps 11/29/23 Unknown Rx Allergy/AdvReac Type Severity Reaction Status Date / Time No Known Allergies Allergy Verified 11/29/23 08:29 Family History Brother Heart disease Seizures Sister Breast cancer Father Alcoholism Parkinson disease Mother Thyroid disorder Surgical History Hx of colonoscopy Hx of right cataract extraction Hx of left cataract extraction History of excision of lesion History of carpal tunnel release of both wrists Social History Smoking Status: Never smoker second hand exposure: No alcohol intake: never substance use type: does not use what type of physical activity do you participate in: walking and other frequency: 3-4 times per week lisseth/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: [employer] seatbelt use: always ROS ROS ED Review of Systems ROS Unobtainable: other Constitutional Constitutional ED: Reports lethargy; Denies chills, fever(s), sweats or weight loss Eyes Eyes: Denies blurry vision, change in vision or diplopia ENT ENT ED: Reports other Details: Facial abrasions/contusions ; Denies rhinorrhea or sore throat Cardiovascular Cardiovascular: Denies chest pain, orthopnea or racing heartbeat Respiratory/Chest Respiratory/Chest: Denies cough, dyspnea, dyspnea on exertion, orthopnea or sputum Gastrointestinal Gastrointestinal: Denies abdominal pain, diarrhea, nausea or vomiting Genitourinary Genitourinary ED: Denies dysuria, hematuria or urinary frequency Musculoskeletal Musculoskeletal: Reports neck pain; Denies arthralgias, back pain or myalgias Integumentary Denies abscess, Abrasions or rash Neurologic Neurologic: Denies headache(s) or weakness Psychiatric Psychiatric: Denies anxiety, depression or suicidal thoughts Endocrine Endocrinology: Denies polydipsia, polyphagia or polyuria Hematologic/Lymphatic Hematologic/Lymphatic: Denies easy bleeding, easy bruising or lymphadenopathy Allergic/Immunologic Allergic/Immunologic ED: Denies mouth swelling, tongue swelling or urticaria EXAM Physical Exam Const Vital Signs: 12/20/23 08:40 12/20/23 09:07 Temperature 98 F Temperature Source Temporal Pulse Rate 59 L Respiratory Rate 14 Respiratory Effort Normal Blood Pressure 157/84 H Blood Pressure Mean 108 Pulse Ox 98 Oxygen Delivery Method Room Air Positive well nourished and well developed General Appearance ED: well developed and NAD HEENT Reports TM's clear and moist mucous membranes HEENT Narrative: Patient with contusion to the left forehead with ecchymosis. Patient also with some ecchymosis and bruising to the bridge of the nose with some mild tenderness. No septal hematoma. She has superficial contusion and abrasion to the left upper lip without lacerations. normocephalic and atraumatic; Negative for trauma or tenderness Tympanic Membrane ED: Yes TM's clear Eyes PERRL and EOMs intact bilaterally General Eye ED: Negative for pale conjunctiva or scleral icterus Neck no lymphadenopathy, supple and no JVD General: Negative for tenderness Chest Wall inspection of chest normal and palpation of chest normal Chest Narrative: Mild diffuse tenderness. No bony step-offs. Good range of motion. Chest: tenderness Resp normal respiratory effort and clear to auscultation bilaterally Effort and Inspection: Negative for respiratory distress or pain with movement Auscultation: Negative for rhonchi, wheezes or diminished lung sounds Cardio regular rate, regular rhythm, S1 normal heart sound, S2 normal heart sound and no murmurs Peripheral Pulses: pulses 2+ throughout GI normal to inspection, nondistended, normoactive bowel sounds, soft to palpation, non-tender, non-distended and no masses Back/Spine no CVA tenderness and no thoracic nor lumbar tenderness Extremity Extremity Narrative: Right hand-patient has small superficial abrasion and contusion to the dorsum of the right fifth MCP joint. She has normal range of motion and no bony deformity. No real bony tenderness on exam. Left hand-patient has superficial abrasions to the palm of the left hand. No bony tenderness on exam. No obvious deformity. Neurovascular intact. General Extremety ED: Negative for edema General Extremity: Negative for edema Neuro oriented x3, CN's II-XII intact bilaterally, no sensory deficits noted and gait normal Sensorium / Orientation: awake, alert, oriented to person, oriented to place and oriented to time Motor Exam: strength 5/5 throughout and strength abnormal Psych mental status grossly normal Skin no rashes or lesions noted and no wounds MDM MDM MDM Narrative Medical decision making narrative: Patient presents with a mechanical fall with injury to her face and hands. She had a CT scan of the brain without contrast that was unremarkable. She had CT of the facial bones that showed no fractures. Patient also with CT of the C-spine that showed degenerative changes without evidence of fracture. She will have clean dressings applied. I do not feel she needs any imaging of her hands. Advised to follow-up with her primary care physician 3 to 5 days. She will be given a tetanus booster. Radiography Diagnostic Testing: Clinical Impression(s) from Imaging Studies Brain CT 12/20/23 08:55 IMPRESSION: Chronic involutional changes of the brain. Electronically Signed: Tone Mary MD at 10:00 EDT , Cervical Spine CT 12/20/23 08:55 IMPRESSION: Multilevel degenerative changes, as described above. Electronically Signed: Tone Mary MD at 10:05 EDT , Facial/Sinus 12/20/23 08:55 IMPRESSION: Normal unenhanced CT of the facial bones. Electronically Signed: Tone Mary MD at 10:01 EDT , Discharge Plan Triage Chief Complaint: Head Injury ED Provider: Arpit Nogueira Dx/Rx/DC Orders Clinical Impression: Fall, Closed head injury, Contusion of face, Abrasion Instructions: ED Abrasion, ED Facial Contusion, ED Head Injury (Adult) Prescriptions: No Action lisinopril 5 mg tablet 5 mg PO DAILY rosuvastatin [Crestor] 10 mg tablet 10 mg PO DAILY duloxetine 60 mg capsule,delayed release(DR/EC) 60 mg PO .every evening Qty: 30 5RF gabapentin 300 mg capsule 300 mg PO QHS Qty: 30 4RF gabapentin 100 mg capsule 100 mg PO QHS Qty: 30 4RF cholecalciferol (vitamin D3) [Vitamin D3] 25 mcg (1,000 unit) capsule 50 mcg PO DAILY Primary Care Provider: Giulia Mitchell Referrals: Giulia Mitchell DO [Primary Care Provider] - 3-5 Days Print Language: Malawian Disposition Disposition: Home, Self Care
== END 2023-12-20 11:01 | disposition home or self-care (01) ==
PROVIDERS: Emergency Provider Emergency Medicine; PCP Internal Medicine; Visit Provider Emergency Medicine
DX: S00.83XA Contusion of other part of head, initial encounter (principal); I10 Essential (primary) hypertension; E78.5 Hyperlipidemia, unspecified; Z23 Encounter for immunization; W17.89XA Other fall from one level to another, initial encounter; Y92.014 Private driveway to single-family (private) house as the place of occurrence of the external cause
CPT/HCPCS: 70450; 70486; 72125; 90715; 99283

== ENCOUNTER → 2024-03-12 | Outpatient (CLI) | payer MEDICARE, SELFPAY ==
--- NOTE | 2024-03-12 14:11 | SP.MBSS_ITS ---
Modified Barium Swallow Patient Information Study Date: 03/12/24 Study Time: 13:00 Direct Billable Minutes: 118 Total Minutes procedure & reportin Diagnosis: Dysphagia R13.10 Referring Physician: Ivan Ruvalcaba Reason for Referral: Objectively assess swallow function, assess risk for aspiration, and determine recommendations for least restrictive diet textures and compensatory strategies to improve safety of swallow. Medical History: PMH: Dysphagia, anemia, carpal tunnel syndrome, HLD (hyperlipidemia), HTN (h ypertension), left ventricular hypertrophy, skin cancer, thrombocytosis, and vitamin D deficiency. Dysphagia history: MBSS 06/16/2022 - Moderate oropharyngeal dysphagia, recommended Easy to Chew textures / thin liquids w/ aspiration precautions. Pt attended follow up dysphagia therapy for oropharyngeal exercise program and training in strategies to decrease aspiration risk. Esophageal manometry 11/19/22?- WNL; EGD 12/08/22?- LA Grade A esophagitis; moderate Schatzki ring, Savary 51F; gastritis. H.Pylori +. Pt had recent OP visit w/ GI due to worsening swallowing difficulty, also sometimes gas, bloating, and constipation. Dr. Ruvalcaba referred the patient for repeat swallow study. Pt reports she is unable to eat meats, breads, lettuce, potatoes (unless very soft), and that she is fearful of choking. She is also fearful of choking w/ large medications, but reports that small medications go down ok w/ a lot of water. Current Diet Ordered: Soft solids / thin liquids Dentition: Partials and Missing Teeth Mental Status: WNL (Pt able to follow commands during evaluation w/o difficulty, but admits to being forgetful. She lives at home w/ her .) Respiratory Status: Oxygenating on Room Air Penetration-Aspiration Scale Penetration-Aspiration Scale: OBJECTIVE ASSESSMENT OF SWALLOW FUNCTION (QUANTITATIVE ? PER TRIAL): PENETRATION / ASPIRATION SCALE (MORTON): 1 = does not enter airway 2 = enters airway/above vocal folds/ejected 3 = enters airway/above vocal folds/not ejected 4 = enters airway/contacts vocal folds/ejected 5 = enters airway/contacts vocal folds/not ejected 6 = enters airway/below vocal folds/ejected 7 = enters airway/below vocal folds/not ejected despite effort 8 = enters airway/below vocal folds/no effort VIDEOFLOROSCOPIC SCALE SCORE (MORTON): Grade I = aspiration of material that has penetrated into the laryngeal vestibule, intact cough reflex Grade II = aspiration < 10 % of the bolus, intact cough reflex Grade III = aspiration of < 10 % of the bolus, reduced cough reflex or aspiration of > 10 % of the bolus, intact cough reflex Grade IV = aspiration of > 10 % of the bolus, reduced cough reflex Penetration-Aspiration Scale Score Thin Liquid via teaspoon: Result: 5= enters airways/contacts vocal folds/not ejected Thin Liquid via teaspoon Trial 2: Result: 8= enters airway/below vocal folds/no effort Thin Liquid via small single sip: cup: Result: 5= enters airways/contacts vocal folds/not ejected Haugan Thick Liquid via small single sip: cup: Result: 3= enters airways/above vocal folds/not ejected Comment: Pt reported stomach pain ~1 min after trial. Esophageal screen completed, which revealed mild retention in the lower esophagus w/ retrograde flow. Pudding via teaspoon: Result: 1= does not enter airway Comment: Esophageal screen - Retention in the lower esophagus. / Cookie: Result: 1= does not enter airway Thin Liquid via sequential sips:straw Chin tuck: Result: 3= enters airways/above vocal folds/not ejected Comment: Esophageal screen - Retention in the middle and lower esophagus w/ retrograde flow. Thin Liquid via large single sip: cup Chin tuck: Result: 5= enters airways/contacts vocal folds/not ejected Thin Liquid via small single sip: cup Effortful swallow: Result: 3= enters airways/above vocal folds/not ejected Oral Phase Labial Seal: Interlabial escape, no progression to anterior lip Tongue Control During Bolus Hold: Posterior escape of greater than half of bolus Bolus Preparation/Mastication: Slow prolonged chewing/mashing with complete recollection Bolus Transport/Lingual Motion: Slowed tongue motion Oral Residue: Residue collection on oral structures Pharyngeal Phase Initiation of Pharyngeal Swallow: Bolus head in pyriforms Soft Palate Elevation: Escape to nasopharynx Laryngeal Elevation: Partial superior movement thyroid cart/partial apprx aryt- epig petiole Anterior Hyoid Excursion: Partial anterior movement Epiglottic Movement: Partial inversion Laryngeal Vestibule Closure at Height of Swallow: Incomplete; narrow column of air/contrast in laryngeal vestibule Pharyngeal Stripping Wave: Present - diminished Pharyngoesophageal Segment Opening: Parital distension and partial duration; parital obstruction of flow Tongue Base Retraction: Wide column of contrast between tongue base & post. pharyngeal wall Pharyngeal Residue: Majority of contrast within or on pharyngeal structures Esophageal Phase Esophageal Clearance: Esophageal retention w/ retrograde flow below pharyngoesophageal seg. Diagnosis/Impression Diagnosis: Moderate-severe oropharyngeal dysphagia R13.12; Esophageal dysphagia R13.14 Impression: The oral phase is primarily marked by... -Decreased bolus control w/ premature posterior loss of >1/2 of thin liquid boluses to the pyriforms prior to swallow onset, increasing risk for aspiration before and during the swallow. -Slowed tongue motion for A-P transport. -Mild-moderate pharyngeal residues, requiring multiple swallows to clear. The pharyngeal phase is primarily marked by... -Delayed swallow onset. -Severe pharyngeal residue most notable w/ cookie w/ minimal pharyngeal clearance due to decreased TB retraction, pharyngeal stripping wave, and UES opening/duration (presence of a CP bar). Patient was unable to cough up and expectorate this trial. Chin tuck and multiple swallows did not clear the cookie; however, liquid wash finally cleared majority of cookie bolus. Pt is a HIGH choking risk w/ solid textures. -SILENT aspiration of thin liquids via tsp. Consistent laryngeal penetration of liquids w/o full ejection. Effortful, multiple swallows were most effective in decreasing aspiration risk. The esophageal phase is primarily marked by... -CP bar at the level of C6, which did appear to impede bolus clearance through the UES. -Esophageal retention of pudding, liquids, and cookie in the esophagus w/ retr ograde flow of cookie and liquids. Recommendations Diet: Puree Textures (MOIST) and Thin Liquids Comment: Medications crushed in applesauce. For medications that can't be crushed, please inquire w/ physician and pharmacist about crushable or liquid forms. Compensatory Strategies: Small Bites (multiple swallows, liquid wash after each bite), Small Sips (multiple swallows, effortful swallows, intermittent cough and re-swallow), Slow Rate, Alternate bites/solids and sips/liquids, Sitting upright and Remain sitting upright for 30 minutes after PO intake Recommend Repeat Modified Barium Swallow: Yes (1-2 months after implementation of oropharyngeal exercise program) Need for Skilled Speech Therapy Services: Yes Comment: Will recommend the patient for outpatient dysphagia therapy to address deficits in moderate-severe oropharyngeal swallow function. Will recommend the patient for oropharyngeal strengthening to improve lingual control, tongue base retraction, airway closure, and pharyngeal contraction (lingual resistance exercises, Karla, Kris, CTAR, effortful). The patient would benefit from thorough education regarding diet textures recommendations and recommended compensatory strategies to decrease risk for choking and aspiration. Recommended Referrals: GI Consult (Continue to follow w/ GI) and Dietitian Consult Education Completed: 1. Described result of evaluation. ([employer] provided written handout of recommended diet textures, aspiration precautions, as well as puree texture (IDDSI Level 4) diet preparation and testing handout. [employer] educated pt in HIGH choking risk w/ solid textures. Pt verbalized understanding.), 2. Pt understands evaluation & agrees with goals and treatment plan. and 7. Pt requires further education on strategies & risks. Status Active ST Patient: Active Contact Information [facility] Speech Therapy:: Laurie Chow M.A. [facility]? Speech-Language Pathologist?? [facility] [address] [place] [address]? [email or web address]?? [phone]
== END | disposition home or self-care (01) ==
PROVIDERS: PCP Internal Medicine; Referring Provider Internal Medicine Gastroenterology; Visit Provider Internal Medicine Gastroenterology
DX: R13.12 Dysphagia, oropharyngeal phase (principal)
CPT/HCPCS: 74230; 92611

== ENCOUNTER 2024-03-28 06:15 | Day surgery (SDC) | payer MEDICARE, SELFPAY ==
--- NOTE | 2024-03-27 16:30 | PAT.ANE_ITS ---
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 When Was Last Pacemaker Check QUESTION #4 FULL TEXT: You/Your Family Experience fever (hyperthermia) with Anesthesia Last Oral Intake Last Oral intake: Last Oral Intake NPO since Meds taken in AM with sips of water? 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 Female Yes 03/27/24 12:13 HX of Motion Sickness No 03/27/24 12:13 HX of N/V After Surgery No 03/27/24 12:13 Non-Smoker Yes 03/27/24 12:13 Duration of Surgery greater No 03/27/24 12:13 than 60 minutes Number of Risk Factors 2 03/27/24 12:13 PONV Score Moderate Risk 03/27/24 12:13 Height & Weight Height & Weight: Anesthesia: Height & Weight Height 5 ft 6 in 12/20/23 08:40 Respiratory Assessment Respiratory Assessment - ornamental iron worker: Respiratory Tract Infection Hx - ornamental iron worker Hx Respiratory Tract Infection No 03/27/24 12:13 STOP Sleep Apnea STOP Sleep Apnea - ornamental iron worker: STOP Sleep Apnea - ornamental iron worker Hx Hypertension Yes: CONTROLLED WITH MED 03/27/24 12:13 Hx Sleep Apnea No 03/27/24 12:13 CPAP BIPAP Do you snore loudly (louder No 03/27/24 12:13 than talking or can be heard Do you often feel tired/ No 03/27/24 12:13 fatigued/ sleepy during daytime? Has anyone observed you stop No 03/27/24 12:13 breathing during sleep? STOP Results Negative 03/27/24 12:13 QUESTION #5 FULL TEXT : Do you snore loudly (louder than talking or can be heard through closed doors)? 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 Specify any problems Hx of Preganancy in last 3 No 03/27/24 12:13 Months Nurse Filling Out Transfusion DSCHRIBER 03/27/24 12:13 & Questions: Date: 03/27/24 03/27/24 12:13 Time: 12:16 03/27/24 12:13 Patient unable to answer at this time (ie. 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: /Reproductive Hx- ornamental iron worker Hx Now No 03/27/24 12:13 Gestational Age (in weeks): EDC: Hx Hx Para Hx Section SAB No 03/27/24 12:13 [facility] Medical History (Updated 03/27/24 @ 12:20 by Dorita Barker) History of stress test Wears partial dentures Wears dentures Post-menopausal Depression Difficulty swallowing Non-smoker History of echocardiogram Anemia Thrombocytosis Vitamin D deficiency Skin cancer HLD (hyperlipidemia) HTN (hypertension) Home Medications ?Medication ?Instructions ?Recorded ?Last Taken ?Type lisinopril 5 mg tablet 5 mg PO DAILY 09/25/21 12/08/22 History rosuvastatin 10 mg tablet (Crestor) 10 mg PO DAILY 09/25/21 Unknown History cholecalciferol (vitamin D3) 25 50 mcg PO DAILY 12/03/22 Unknown History mcg (1,000 unit) capsule (Vitamin D3) gabapentin 100 mg capsule 100 mg PO QHS #30 caps 11/29/23 Unknown Rx gabapentin 300 mg capsule 300 mg PO QHS #30 caps 11/29/23 Unknown Rx duloxetine 60 mg capsule,delayed 60 mg PO DAILY 03/27/24 Unknown History release Allergy/AdvReac Type Severity Reaction Status Date / Time No Known Allergies Allergy Verified 03/27/24 12:10 Family History Brother Heart disease Seizures Sister Breast cancer Father Alcoholism Parkinson disease Mother Thyroid disorder Surgical History (Updated 03/27/24 @ 12:20 by Dorita Barker) History of esophagogastroduodenoscopy (EGD) Hx of colonoscopy Hx of right cataract extraction Hx of left cataract extraction History of excision of lesion History of carpal tunnel release of both wrists Social History Smoking Status: Never smoker second hand exposure: No alcohol intake: never substance use type: does not use what type of physical activity do you participate in: walking and other frequency: 3-4 times per week lisseth/adventism: Nazarene seatbelt use: always Audit: Pertinent Findings Pertinent Findings Echo (EF%) pertinent findings: July 20, 2022. 65% ejection fraction. No aortic stenosis. Recommendation Anesthesia Recommendation Anesthesia recommendation: OPTIMIZED for anesthesia
[2024-03-28] VITALS (9 sets, daily range): BP systolic 87–141; BP diastolic 62–80; PULSE 60–67; RESP 12–18; TEMP 36.7–36.9; O2SAT 92–98; BMI 24.5
--- NOTE | 2024-03-28 06:52 | PRE.ANES_ITS ---
ASA Classification* ASA Classification ASA Classification: 2 Assessment & Plan Anesthesia* Anesthesia Assessment Anesthesia Assessment: Discussed sedation and/or anesthesia options, risks, benefits, and alternatives with patient/parents/legal guardian/POA. Questions invited. The patient/parents/legal guardian/POA seems to understand and agrees to proceed with anesthesia plan. Reviewed the physical assessment, medical history, allergy history and patient home medications list prior to surgery/procedure/anesthetic and documented any changes. Performed airway and anesthesia risk assessments. Anesthesia Type Anesthesia Type: MAC Anesthesia Focused Assessment* Temperature: 98.0 F Pulse Rate: 60 Blood Pressure: 141/75 Respiratory Rate: 12 Pulse Ox: 98 Airway Assessment Mouth opens: >3 cm Mallampati Score: II Focused Labs Anesthesia Preop lab: CBC WBC 4.7 K/mm3 (4.4-11.0) 08/09/23 06:07 RBC 4.04 M/mm3 (4.2-5.4) L 08/09/23 06:07 Hgb 12.1 g/dL (12.0-15.0) 08/09/23 06:07 Hct 37.6 % (37-47) 08/09/23 06:07 Plt Count 225 K/mm3 (150-450) 08/09/23 06:07 CHEMISTRY Potassium 4.2 mmol/L (3.5-5.1) 08/09/23 06:07 Sodium 139 mmol/L (136-145) 08/09/23 06:07 Phosphorus 3.8 mg/dL (2.5-4.9) 11/26/21 06:55 BUN 16 mg/dL (7-18) 08/09/23 06:07 Creatinine 1.38 mg/dL (0.55-1.02) H 08/09/23 06:07 Glucose 88 mg/dL (74-106) 08/09/23 06:07 TSH 2.50 uIU/mL (0.358-3.74) 08/09/23 06:07 COAG PT 12.9 SECONDS (11.7-14.9) 12/30/22 08:13 Pre-Assessment Diagnosis/Proposed Procedure Planned Operative Procedure(s): EGD Anesthesia History 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 When Was Last Pacemaker Check QUESTION #4 FULL TEXT: You/Your Family Experience fever (hyperthermia) with Anesthesia Last Oral Intake Last Oral intake: Last Oral Intake NPO since 17:30 03/28/24 06:47 Meds taken in AM with sips of No 03/28/24 06:47 water? 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 Female Yes 03/27/24 12:13 HX of Motion Sickness No 03/27/24 12:13 HX of N/V After Surgery No 03/27/24 12:13 Non-Smoker Yes 03/27/24 12:13 Duration of Surgery greater No 03/27/24 12:13 than 60 minutes Number of Risk Factors 2 03/27/24 12:13 PONV Score Moderate Risk 03/27/24 12:13 Height & Weight Height & Weight: Anesthesia: Height & Weight Height 5 ft 6 in 03/28/24 06:47 Weight: 69 kg 03/28/24 06:47 Body Mass Index (BMI) 24.5 03/28/24 06:47 Respiratory Assessment Respiratory Assessment - 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 Has anyone observed you stop No 03/27/24 12:13 breathing during sleep? STOP Results Negative 03/27/24 12:13 QUESTION #5 FULL TEXT : Do you snore loudly (louder than talking or can be heard through closed doors)? 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 Specify any problems Hx of Preganancy in last 3 No 03/27/24 12:13 Months Nurse Filling Out Transfusion DSCHRIBER 03/27/24 12:13 & Questions: Date: 03/27/24 03/27/24 12:13 Time: 12:16 03/27/24 12:13 Patient unable to answer at this time (ie. 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: /Reproductive Hx- metal cans supervisor Hx Now No 03/27/24 12:13 Gestational Age (in weeks): EDC: Hx Hx Para Hx Section SAB No 03/27/24 12:13 PFSH Medical History History of stress test Wears partial dentures Wears dentures Post-menopausal Depression Difficulty swallowing Non-smoker History of echocardiogram Anemia Thrombocytosis Vitamin D deficiency Skin cancer HLD (hyperlipidemia) HTN (hypertension) Home Medications ?Medication ?Instructions ?Recorded ?Last Taken ?Type lisinopril 5 mg tablet 5 mg PO DAILY 09/25/21 03/27/24 History rosuvastatin 10 mg tablet (Crestor) 10 mg PO DAILY 09/25/21 03/27/24 History cholecalciferol (vitamin D3) 25 50 mcg PO DAILY 12/03/22 03/27/24 History mcg (1,000 unit) capsule (Vitamin D3) gabapentin 100 mg capsule 100 mg PO QHS #30 caps 08/20/24 12/17/24 Rx gabapentin 300 mg capsule 300 mg PO QHS #30 caps 11/29/23 03/27/24 Rx duloxetine 60 mg capsule,delayed 60 mg PO DAILY 03/27/24 03/27/24 History release Allergy/AdvReac Type Severity Reaction Status Date / Time No Known Allergies Allergy Verified 03/28/24 06:46 Family History Brother Heart disease Seizures Sister Breast cancer Father Alcoholism Parkinson disease Mother Thyroid disorder Surgical History History of esophagogastroduodenoscopy (EGD) Hx of colonoscopy Hx of right cataract extraction Hx of left cataract extraction History of excision of lesion History of carpal tunnel release of both wrists Social History Smoking Status: Never smoker second hand exposure: No alcohol intake: never substance use type: does not use what type of physical activity do you participate in: walking and other frequency: 3-4 times per week lisseth/voodoo: Nazarene seatbelt use: always Review of Systems (Anesthesia) ROS Narrative System reviewed and no additional complaints, except as documented.
--- NOTE | 2024-03-28 07:01 | HP.PCM_ITS ---
HPI - General General Date of Admission: 03/28/24 Date of Service: 03/28/24 Chief Complaint: dysphagia HPI Narrative ANDREEA CORDOVA, is a 83 F who presents to the office today for follow up. Prior workup:?Barium Swallow 06.16.22?moderate oropharyngeal phase dysphagia.?Biochemical?CBC, CMP, LFT, triglycerides, lipids, Vit D25, TSH without pertinent abnormality.? *BGI established 7..23 with dysphagia for the last year particularly with bread, meat, lettuce and banana. Takes small bites and frequent sips of water. Was unable to complete ST. Constipation is a difficulty, BM every couple of days with Metamucil and OTC laxatives; Linzess previously attempted and failed.?Esophageal manometry 11.19.22?WNL?EGD 12.08.22?LA Grade A esophagitis; moderate Schatzki ring, Savary 51F; gastritis. H.Pylori +? Contact 12.24.22?Start H.Pylori treatment?Biochemical?CBC, coag, CMP, LFT, GAME, MICHELE, ANCA, BEATRIZ comp without pertinent abnormality? RAST Class I Cow?s milk? Contact 01.04.23 reports difficulty with H.Pylori regimen.?Stool 02.22.23?H.Pylori negative? Contact 03.08.23 with normal results. Reports abdominal pain but has been having a lot of abdominal pain which she feels is r/t stress from recent grief.? ? OV 04.05.23- Pt says she continues to have abdominal pain with gas and bloating. Is not severe but does bother her. Says she has trouble with bowels and only goes every few days with the help of Miralax and OTC woman's stool softeners. Has quit taking pantoprazole OV 09.06.23 Pt reports that she is doing well overall, continues to have mild gas and bloating in the mornings. Pt reports that she continues to have some difficulty swallowing, but avoids foods she knows causes issues. OV 11.1.24 pt reports that she if having continued difficulty swallowing. Pt used to have trouble with food feeling stuck further down, but now pt reports it feels like the food is getting stuck higher up in her esophagus. Pt denies other GI symptoms of concern at this time. [facility] Medical History History of stress test Wears partial dentures Wears dentures Post-menopausal Depression Difficulty swallowing Non-smoker History of echocardiogram Anemia Thrombocytosis Vitamin D deficiency Skin cancer HLD (hyperlipidemia) HTN (hypertension) Home Medications ?Medication ?Instructions ?Recorded ?Last Taken ?Type lisinopril 5 mg tablet 5 mg PO DAILY 09/25/21 03/27/24 History rosuvastatin 10 mg tablet (Crestor) 10 mg PO DAILY 09/25/21 03/27/24 History cholecalciferol (vitamin D3) 25 50 mcg PO DAILY 12/03/22 03/27/24 History mcg (1,000 unit) capsule (Vitamin D3) gabapentin 100 mg capsule 100 mg PO QHS #30 caps 11/29/23 03/27/24 Rx gabapentin 300 mg capsule 300 mg PO QHS #30 caps 11/29/23 03/27/24 Rx duloxetine 60 mg capsule,delayed 60 mg PO DAILY 03/27/24 03/27/24 History release Allergy/AdvReac Type Severity Reaction Status Date / Time No Known Allergies Allergy Verified 03/28/24 06:46 Family History Brother Heart disease Seizures Sister Breast cancer Father Alcoholism Parkinson disease Mother Thyroid disorder Surgical History History of esophagogastroduodenoscopy (EGD) Hx of colonoscopy Hx of right cataract extraction Hx of left cataract extraction History of excision of lesion History of carpal tunnel release of both wrists Social History Smoking Status: Never smoker second hand exposure: No alcohol intake: never substance use type: does not use what type of physical activity do you participate in: walking and other frequency: 3-4 times per week lisseth/mormonism: [employer]arene seatbelt use: always ROS Constitutional Constitutional: Denies fatigue, fever(s), poor appetite, weight gain or weight loss Gastrointestinal Gastrointestinal: Denies belching, bloating, change in bowel habits, change in stool character, chewing difficulty, coffee ground emesis, constipation, cramping, diarrhea, dyspepsia, dysphagia, early satiety, excessive flatus, fecal incontinence, heartburn, hematemesis, hematochezia, hemorrhoids, loose stools, melena, nausea, odynophagia, rectal bleeding, tenesmus, vomiting or weight changes Vital Signs Vital Signs Vital Signs: 03/28/24 06:47 03/28/24 06:47 03/28/24 06:53 Temperature 98.0 F 98.0 F Temperature Source Temporal Pulse Rate 60 60 Respiratory Rate 12 12 Respiratory Pattern Normal Blood Pressure 141/75 H 141/75 H Blood Pressure Mean 97 Blood Pressure Source Monitor Blood Pressure Position Semi-Fowlers Blood Pressure Location Right Arm Pulse Ox 98 98 Oxygen Delivery Method Room Air Weight Weight: 152 lb 1.903 oz Body Mass Index (BMI) 24.5 Physical Exam Const alert, oriented x3, no apparent distress and healthy appearing General Appearance: cooperative GI normal to inspection, nondistended, normoactive bowel sounds, soft to palpation, non-tender and non-distended Percussion: normal to percussion Rectal Exam: deferred Assessment & Plan Assessment/Plan (1) Dysphagia: QUALIFIERS: Dysphagia type: oropharyngeal phase Qualified Code(s): R13.12 - Dysphagia, oropharyngeal phase PLAN: (1) Dysphagia: Status: Acute Qualifiers: Dysphagia type: oropharyngeal phase Qualified Code(s): R13.12 - Dysphagia, oropharyngeal phase Plan: 79-year-old with dry mouth and progressive dysphagia. She has known oropharyngeal dysphagia and has been getting help by speech therapy. This has been helping her however she still has a lot of problems with solid food dysphagia and liquid food dysphagia. She had a barium swallow which had shown a critical pharyngeal bar. She has never had upper endoscopy. She has never had a esophageal manometry. She has not been assessed for any autoimmune disease such as scleroderma or Sjogren's syndrome. She thought that her trouble swallowing which is because of her age. She also is not sure if she has had any imaging of her brain and spinal cord. She is not sure if she has had any x-rays of her neck to see if she has arthritis that is contributing to her oropharyngeal dysphagia. She underwent an upper endoscopy and was discovered to have a mildly irregular distal esophagus. Biopsies were negative for intestinal metaplasia, dysplasia or cancer. She also was discovered to have diffuse gastritis involving most of the body of the stomach and gastric antrum. Biopsies were abundant for H. pylori with mild intestinal metaplasia but without dysplasia or cancer. I think she is experiencing some oropharyngeal dysphagia. She has never gustafson an evaluation for oropharyngeal dysphagia. We will refer her to speech therapy and we will get a video swallow. We offered her 14-day treatment with quadruple therapy due to to resistance of H. pylori in the community. She said that the pills were too big and that she felt worse when she took the medicine. Therefore she did not take it. She is also been struggling with some constipation issues. She does take MiraLAX, stool softeners and osmotic laxatives along with stimulants. Recommendations for her was to take Pylera therapy which combines clarithromycin, omeprazole, amoxicillin for 10 days. She was okay with that on that particular regimen. We also recommended super greens along with aloe vera and MiraLAX recommendation for her to take on a daily basis. I wrote everything down for her because she seemed to be very confused and may be experiencing some slight dementia issues versus some anxiety secondary to the loss of her younger brother. I told her I think her emotions are definitely affecting her bowels causing worsening bloating and abdominal pain. Over her diagnosis is of esophageal spasm and gas bloat syndrome. She is esophageal spasm given her gas bloat because she is scared about side effects. I had offered her H2 jim but she does not want to take anything. She is okay with taking magnesium, vitamin D. She chest pain or shortness of breath. I encouraged her to continue her exercise regimen and to take sodium bicarbonate as needed for her symptoms.
--- NOTE | 2024-03-28 07:28 | OP.CCLET_ITS ---
03/28/2024 Giulia Mitchell [address] [place] [address] Re : Upper GI endoscopy procedure for Jackie Eastman Dear Dr. Mitchell This procedure was performed on Thursday, March 28, 2024. My impressions and recommendations are as follows: Impressions : - Benign-appearing esophageal stenosis. Dilated. Biopsied. - Abnormal esophageal motility, suspicious for presbyesophagus. - Small hiatal hernia. - No gross lesions in the entire stomach. - No gross lesions in the first portion of the duodenum. Recommendations : - Discharge patient to home. - Resume previous diet. - Continue present medications. - Await pathology results. My findings are described in the full procedure note, which is enclosed. If I can be of further assistance, please feel free to contact me at . Sincerely, Ivan Ruvalcaba, 03/28/2024 7:27:23 AM This report has been signed electronically.
--- NOTE | 2024-03-28 07:28 | OP.EGD_ITS ---
Patient Name: Jackie Eastman Procedure Date: 03/28/2024 7:08 AM Date of : 1940 Age: 84 Procedure: Upper GI endoscopy Indications: Oropharyngeal phase dysphagia, Pharyngeal phase dysphagia, Esophageal dysphagia Providers: Ivan Ruvalcaba DO Medicines: Monitored Anesthesia Care Patient Profile: This is an 84 year old female. Refer to note in patient chart for documentation of history and physical. Patient has symptoms of dysphagia with both liquids and solids. Complications: No immediate complications. Procedure: Pre-Anesthesia Assessment: - Prior to the procedure, a History and Physical was performed, and patient medications and allergies were reviewed. The patient is competent. The risks and benefits of the procedure and the sedation options and risks were discussed with the patient. All questions were answered and informed consent was obtained. Patient identification and proposed procedure were verified by the physician in the pre-procedure area. Mental Status Examination: alert and oriented. Airway Examination: normal oropharyngeal airway and neck mobility. Respiratory Examination: clear to auscultation. CV Examination: normal. Prophylactic Antibiotics: The patient does not require prophylactic antibiotics. Prior Anticoagulants: The patient has taken no anticoagulant or antiplatelet agents except for NSAID medication. ASA Grade Assessment: II - A patient with mild systemic disease. After reviewing the risks and benefits, the patient was deemed in satisfactory condition to undergo the procedure. The anesthesia plan was to use monitored anesthesia care (MAC). Immediately prior to administration of medications, the patient was re-assessed for adequacy to receive sedatives. The heart rate, respiratory rate, oxygen saturations, blood pressure, adequacy of pulmonary ventilation, and response to care were monitored throughout the procedure. The physical status of the patient was re-assessed after the procedure. After obtaining informed consent, the endoscope was passed under direct vision. Throughout the procedure, the patient's blood pressure, pulse, and oxygen saturations were monitored continuously. The Endoscope was introduced through the mouth, and advanced to the second part of duodenum. The upper GI endoscopy was accomplished without difficulty. The patient tolerated the procedure well. Scope In: 7:16:42 AM Scope Out: 7:21:50 AM Total Procedure Duration Time 0 hours 5 minutes 8 seconds Findings: One benign-appearing, intrinsic moderate stenosis was found 20 to 23 cm from the incisors. This stenosis measured 5 mm (inner diameter) x 4 cm (in length). The stenosis was traversed. A guidewire was placed and the scope was withdrawn. Dilation was performed with a Savary dilator with no resistance at 57 Fr. The dilation site was examined and showed moderate mucosal disruption. Estimated blood loss was minimal. Biopsies were taken with a cold forceps for histology. Verification of patient identification for the specimen was done. Estimated blood loss was minimal. Abnormal motility was noted in the esophagus. The cricopharyngeus was abnormal. There is a decrease in motility of the esophageal body. The distal esophagus/lower esophageal sphincter is spastic, but gives up passage to the endoscope. Primary peristaltic waves are noted. A small hiatal hernia was present. No gross lesions were noted in the entire examined stomach. No gross lesions were noted in the first portion of the duodenum. Impression: - Benign-appearing esophageal stenosis. Dilated. Biopsied. - Abnormal esophageal motility, suspicious for presbyesophagus. - Small hiatal hernia. - No gross lesions in the entire stomach. - No gross lesions in the first portion of the duodenum. Recommendation: - Discharge patient to home. - Resume previous diet. - Continue present medications. - Await pathology results. Procedure Code(s): --- Professional --- 31800, Esophagogastroduodenoscopy, flexible, transoral; with insertion of guide wire followed by passage of dilator(s) through esophagus over guide wire 18758, 59,51, Esophagogastroduodenoscopy, flexible, transoral; with biopsy, single or multiple CPT copyright 2021 [employer]. All rights reserved. The codes documented in this report are preliminary and upon physician primary care sports medicine review may be revised to meet current compliance requirements. Ivan Ruvalcaba DO 03/28/2024 7:27:23 AM This report has been signed electronically. Number of Addenda: 0 Note Initiated On: 03/28/2024 7:08 AM
--- NOTE | 2024-03-28 07:30 | EGD_PTH ---
PATIENT: ANDREEA CORDOVA LOC: EN U#:[id number] AGE/SX: 84/F ROOM: RE03/28/[address]: Dr. Ivan Ruvalcaba DO : 1940 BED: DIS: 03/28/2024 SPEC #: [id number] RECD: 03/28/24 10:19 STATUS: SANTIAGO RERachel #: [id number] PHILLIP: 03/28/24 07:[address]: Ivan Ruvalcaba DEPT: SURGICAL PATHOLOGY RECD BY: Conner Rubalcava ENTERED: 03/28/24 11:32 SP TYPE: EGD BIOPSY YOLA DR: Dr. Giulia Mitchell DO Tissues: Esophagus, NOS Procedures: Special Stain Group I Surgery Specimen Level IV Alcian Blue/PAS (control) HEADER OPERATION: EGD, biopsy, dilation PRE-OP DIAGNOSIS: Dysphagia TISSUE SUBMITTED: Proximal esophagus biopsy MICROSCOPIC DIAGNOSIS Proximal esophagus, biopsy: Fragments of benign gastroesophageal mucosa. Intestinal metaplasia (goblet cell metaplasia) not identified. See comment. 03/29/2024 COMMENT Alcian blue/PAS stain with matched control is used in the evaluation of the specimen. The specimen predominantly consists of squamous mucosa. MICROSCOPIC DESCRIPTION Slides are reviewed. GROSS DESCRIPTION Received in fixative is one container labeled with the patient's name and designated Proximal esophagus biopsy. The specimen consists of multiple irregular fragments of light zamora soft tissue that in aggregate measure 0.8 x 0.5 x 0.1 cm. The specimen is totally submitted in one cassette. 03/28/2024 TC:5 CPT:97337,09825
--- NOTE | 2024-03-28 07:31 | PCM.POST.ANE ---
Anesthesia: Postop Eval I Current Vital Signs Temperature: 98.5 F Pulse Rate: 64 Blood Pressure: 95/63 Respiratory Rate: 14 Pulse Ox: 96 Oxygen Delivery Method: Room Air Assessment Airway patent: Yes Spontaneous unlabored respirations: Yes Mental status: Asleep nausea: No Vomiting: No Anesthesia Complication: No Fluid Hydration Crystalloid volume administer (ml): 20 Total IV fluid infused: 20 Progress Note Anesthesia document: Postop Eval 1 completed: Yes
--- NOTE | 2024-03-28 08:35 | PCM.POSTANE2 ---
Anesthesia Postop Eval I Sum Postop Eval Completion status Anesthesia document: Postop Eval 1 completed: Yes Anesthesia Postop Eval I Summary Anesthesia Postop Eval I Summary: Anesthesia Postop Eval I: Assessment Summary Airway patent Yes 03/28/24 07:32 [email or web address] Spontaneous unlabored Yes 03/28/24 07:32 [email or web address] respirations Mental status Asleep 03/28/24 07:32 [email or web address] nausea No 03/28/24 07:32 [email or web address] Vomiting No 03/28/24 07:32 [email or web address] Anesthesia Postop Eval I: Fluid Summary Crystalloid volume administer 20 03/28/24 07:32 [email or web address] (ml) Colloids volume administered ( ml) Blood Product volume administered (ml) Total IV fluid infused 20 03/28/24 07:32 [email or web address] Anesthesia Postop Eval I: Summary Notes Anesthesia Complication No 03/28/24 07:32 [email or web address] Anesthesia Complication Comment: Post-operative progress note Anesthesia: Postop Eval II Evaluation Mental status: Awake Pain Level: 0 nausea: No Vomiting: No
== END 2024-03-28 08:15 | disposition home or self-care (01) ==
LOC: EN 06:16 → AC 06:20
PROVIDERS: PCP Internal Medicine; Referring Provider Internal Medicine; Visit Provider Internal Medicine Gastroenterology
PROC: 0DJ08ZZ Inspection of Upper Intestinal Tract, Via Natural or Artificial Opening Endoscopic (ICD-10-PCS; CPT 43235; principal; 2024-03-28 07:25)
DX: K44.9 Diaphragmatic hernia without obstruction or gangrene (principal); R13.12 Dysphagia, oropharyngeal phase; I10 Essential (primary) hypertension; E78.5 Hyperlipidemia, unspecified; K22.2 Esophageal obstruction; Z79.899 Other long term (current) drug therapy
CPT/HCPCS: 43248; 43239; 88305; 88312; C1769; J2405

== ENCOUNTER → 2024-05-02 | Outpatient (CLI) | payer MEDICARE, SELFPAY ==
[2024-05-02 10:20] LABS: Bacteria 0 SEEN /hpf (None Seen); Mucous, Urine 0 SEEN /hpf (<or=2+); Red Blood Cells-Urine 0 SEEN /hpf (0-5)
[2024-05-02 11:05] LABS: Absolute Lymphocyte Count 1.21 X10^3/uL (0.83-4.51); Absolute Neutrophil Count 1.9 X10^3/uL (2.0-7.7); Basophil# 0.07 X10^3/uL; Basophil% 1.8 % (0-1); Eosinophil# 0.32 X10^3/uL; Eosinophils% 8.2 % (0-5); Hematocrit 37.6 % (37-47); Lymphocyte # 1.21 X10^3/ul (0.83-4.51); Lymphocyte % 31.1 % (19-41); Mean Corp Hgb Conc 31.9 g/dL (32-36); Mean Corpuscular Hgb 29.5 pg (27.0-32.0); Mean Corpuscular Volume 92.4 fL (81-99); Mean Platelet Vol. 10.2 fl (6.2-12.0); Monocyte# 0.37 X10^3/uL; Monocyte% 9.5 % (0-10); NRBC Flagged by Analyzer 0 % (0-5); Neutrophil % 48.9 % (47-70); Platelet Count 222 K/mm3 (150-450); RBC Distribution Width SD 43.6 fl (35.1-43.9); Red Blood Count 4.07 M/mm3 (4.2-5.4); White Blood Count 3.9 K/mm3 (4.4-11.0)
[2024-05-02 11:21] LABS: Color, Urine Yellow (Yellow); Glucose, Dipstick Normal (Normal); Ketone-Dipstick Negative (Negative); Leukocyte Esterase-Dipstick 25 /ul (Negative); Nitrite-Dipstick Negative (Negative); Occult Blood-Urine Negative /ul (Negative); Protein-Dipstick 15 mg/dl (Negative); Specific Gravity, Urine 1.015 (1.002-1.030); Urine Bilirubin Dipstick Negative (Negative); Urine Clarity Clear (Clear); Urine Urobilinogen Normal (Normal)
[2024-05-02 11:37] LABS: Vitamin D,25 Hydroxy 49.4 ng/mL
[2024-05-02 11:44] LABS: Squamous Epithelial Cells - UA 0-5 SEEN /hpf (5-10); White Blood Cells 0-5 SEEN /hpf (0-5)
[2024-05-02 12:03] LABS: Microalbumin,Random Urine 25.3 mg/L (NO RANGE EST.); Microalbumin:Creatinine Ratio 12.7 mg/g CRE (<30 mg/g CRE)
[2024-05-02 12:18] LABS: ALB/GLOB Ratio 1.2 RATIO (0.9-2.4); AST(SGOT) 16 U/L (15-37); Alanine Aminotransfer ALT/SGPT 21 U/L (13-56); Albumin, Serum 3.7 g/dL (3.2-5.0); Alkaline Phosphatase 74 U/L (45-117); Anion Gap 7 (5-15); BUN 19 mg/dL (7-18); BUN/Creat Ratio 14.4 RATIO (10-20); Calcium,Total 9.3 mg/dL (8.5-10.1); Chloride 107 mmol/L (98-107); Cholesterol 187 mg/dL (200); Creatinine, Serum 1.32 mg/dL (0.55-1.02); EST Glomerular Filtration Rate 41 mL/min (>60); Est Glom Filt Rate - Afr Amer 49 mL/min (>60); Globulin 3.1 g/dL (2.2-4.2); Glucose 93 mg/dL (74-106); High Density Lipoprotein 75 mg/dL; Potassium 4.4 mmol/L (3.5-5.1); Protein, Total 6.8 g/dL (6.4-8.2); Sodium Level 141 mmol/L (136-145); Triglycerides 61 mg/dL; Very Low Density Lipoprotein 12 mg/dL (5-40)
== END | disposition home or self-care (01) ==
PROVIDERS: PCP Internal Medicine; Referring Provider Internal Medicine; Visit Provider Internal Medicine
DX: E78.5 Hyperlipidemia, unspecified (principal); E55.9 Vitamin D deficiency, unspecified; I11.9 Hypertensive heart disease without heart failure; R73.09 Other abnormal glucose
CPT/HCPCS: 36415; 80053; 80061; 81001; 82043; 82306; 82570; 84443; 85025

== ENCOUNTER → 2024-05-11 | Outpatient (CLI) | payer MEDICARE, SELFPAY ==
--- NOTE | 2024-05-11 07:49 | BI_ITS ---
PROCEDURE: SCRN MAMM (CAD)W/ANITRA BILAT REASON FOR EXAM: F, Age 84 y/o, routine annual mammogram. Sisters with breast cancer. Aunt with breast cancer. TECHNIQUE: Bilateral screening digital breast tomosynthesis with 2D and 3D images. Computer aided detection. COMPARISON: Prior exam(s) dating back to October 13, 2022.. FINDINGS: The breasts are extremely dense which lowers the sensitivity of mammography. Stable calcified nodule in the deep slightly inferior medial aspect of the left breast. No suspicious masses, areas of developing architectural distortion, or suspicious calcifications. BI/SCRN MAMM (CAD)W/ANITRA BILAT IMPRESSION: BI-RADS 2: BENIGN. RECOMMEND ANNUAL MAMMOGRAPHIC SCREENING. Follow-up code: Routine Follow-up The patient will be notified of the results by letter. Reading Location: [place] [address]
== END | disposition home or self-care (01) ==
LOC: OPBI 07:49
PROVIDERS: PCP Internal Medicine; Referring Provider Internal Medicine; Visit Provider Internal Medicine
DX: Z12.31 Encounter for screening mammogram for malignant neoplasm of breast (principal); Z80.3 Family history of malignant neoplasm of breast
CPT/HCPCS: 77063; 77067

== ENCOUNTER → 2024-09-05 | Outpatient (CLI) | payer MEDICARE, SELFPAY ==
--- NOTE | 2024-09-05 09:22 | BD_ITS ---
PROCEDURE: DEXA BONE DENSITY STUDY 09/05/2024 REASON FOR EXAM: F, age 84 y/o . Postmenopausal. TECHNIQUE: DXA scan of sites with data reported below. REFERENCE LINKS: [facility] Adult Positions COMPARISON: Prior study dated October 28, 2021. FINDINGS: BMD and T-SCORES Lumbar spine: 0.892 g/cm2, T-score -1.1 Levels: L1 through L4 Change from prior: Loss of 1.9%. Left femoral neck: 0.629 g/cm2, T-score -2.0 Femoral neck comparison data not recommended for monitoring change. Left total hip: 0.813 g/cm2, T-score -1.1 Change from prior: Loss of 3.1%. Right femoral neck: 0.560 g/cm2, T-score -2.6 Femoral neck comparison data not recommended for monitoring change. Right total hip: 0.732 g/cm2, T-score -1.7 Change from prior: Loss of 3.8%. The World Health Organization has defined the following categories based on bone density: Normal bone density: T-score equal to or greater than -1.0 Osteopenia: T-score between -1.0 and -2.5 Osteoporosis: T-score equal to or less than -2.5 The patient does meet the pharmacological treatment recommendations for prevention of osteoporosis. BD/Dexa Bone Density Study IMPRESSION: OSTEOPOROSIS. Recommend follow-up as clinically warranted. Reading Location: [id number]
== END | disposition home or self-care (01) ==
LOC: OPBD 09:16
PROVIDERS: PCP Internal Medicine; Referring Provider Internal Medicine; Visit Provider Internal Medicine
DX: Z78.0 Asymptomatic menopausal state (principal)
CPT/HCPCS: 77080

== ENCOUNTER → 2024-12-07 | Outpatient (CLI) | payer MEDICARE, SELFPAY ==
[2024-12-07 07:47] LABS: Mucous, Urine 0 SEEN /hpf (<or=2+); Red Blood Cells-Urine 0 SEEN /hpf (0-5); Squamous Epithelial Cells - UA 0 SEEN /hpf (5-10)
[2024-12-07 08:09] LABS: Hematocrit 35.1 % (37-47); Hemoglobin 11.6 g/dL (12.0-15.0); Immature Granulocytes Count 0.010 X10^3/uL (0.0-0.0); Mean Corp Hgb Conc 33.0 g/dL (32-36); Mean Corpuscular Volume 91.4 fL (81-99); Mean Platelet Vol. 9.7 fl (6.2-12.0); NRBC Flagged by Analyzer 0 % (0-5); Platelet Count 234 K/mm3 (150-450); RBC Distribution Width CV 13.0 % (11.6-14.6); RBC Distribution Width SD 42.9 fl (35.1-43.9); Red Blood Count 3.84 M/mm3 (4.2-5.4); White Blood Count 4.2 K/mm3 (4.4-11.0)
[2024-12-07 09:01] LABS: AST(SGOT) 24 U/L (<=31); Alanine Aminotransfer ALT/SGPT 20 U/L (<=34); Albumin, Serum 4.2 g/dL (3.4-4.8); Alkaline Phosphatase 71 U/L (35-104); Anion Gap 8 (5-15); BUN 20 mg/dL (4-19); BUN/Creat Ratio 14.7 RATIO (10-20); Calcium,Total 9.3 mg/dL (7.6-11.0); Carbon Dioxide 26.7 mmol/L (21.0-32.0); Chloride 103 mmol/L (98-108); Globulin 2.2 g/dL (2.2-4.2); Glucose 92 mg/dL (70-99); Potassium 4.6 mmol/L (3.3-5.1); Vitamin D,25 Hydroxy 43.6 ng/mL (30-100)
[2024-12-07 09:02] LABS: Color, Urine Yellow (Yellow); Glucose, Dipstick Normal (Normal); Ketone-Dipstick Negative (Negative); Leukocyte Esterase-Dipstick 25 /ul (Negative); Nitrite-Dipstick Negative (Negative); Occult Blood-Urine Negative /ul (Negative); Protein-Dipstick 15 mg/dl (Negative); Specific Gravity, Urine 1.015 (1.002-1.030); Urine Bilirubin Dipstick Negative (Negative)
[2024-12-07 09:16] LABS: Cholesterol 208 mg/dL (<=200); Low Density Lipoprotein Calc. 115 mg/dL; Triglycerides 66 mg/dL; Very Low Density Lipoprotein 13 mg/dL (5-40); cholesterol:hdl ratio screen 2.60
[2024-12-07 09:35] LABS: Creatinine, Urine (random) 72.40 mg/dL (28.00-217.00); Microalbumin,Random Urine < 12.0 mg/L (<20 mg/L)
== END | disposition home or self-care (01) ==
LOC: LAB 07:43
PROVIDERS: PCP Internal Medicine; Referring Provider Internal Medicine; Visit Provider Internal Medicine
DX: R73.09 Other abnormal glucose (principal); E55.9 Vitamin D deficiency, unspecified; E78.00 Pure hypercholesterolemia, unspecified
CPT/HCPCS: 36415; 80053; 80061; 81001; 82043; 82306; 82570; 83036; 84443; 85025

== ENCOUNTER → 2025-01-04 | Outpatient (CLI) | payer MEDICARE, SELFPAY ==
[2025-01-04 10:55] LABS: Hematocrit 37.3 % (37-47); Hemoglobin 12.3 g/dL (12.0-15.0); Immature Granulocytes Count 0.020 X10^3/uL (0.0-0.0); Mean Corp Hgb Conc 33.0 g/dL (32-36); Mean Corpuscular Volume 92.3 fL (81-99); Mean Platelet Vol. 10.4 fl (6.2-12.0); NRBC Flagged by Analyzer 0 % (0-5); Platelet Count 263 K/mm3 (150-450); RBC Distribution Width CV 12.7 % (11.6-14.6); RBC Distribution Width SD 43.1 fl (35.1-43.9); Red Blood Count 4.04 M/mm3 (4.2-5.4); White Blood Count 4.5 K/mm3 (4.4-11.0)
== END | disposition home or self-care (01) ==
LOC: LAB 09:48
PROVIDERS: PCP Internal Medicine; Referring Provider Internal Medicine; Visit Provider Internal Medicine
DX: D72.10 Eosinophilia, unspecified (principal)
CPT/HCPCS: 36415; 85025